=== PATIENT | female | born 1970 | race Caucasian/White ===

== ENCOUNTER 2021-11-17 10:30 | Observation (INO) | payer SELFPAY ==
[2021-11-17] VITALS (15 sets, daily range): BP systolic 105–145; BP diastolic 60–79; PULSE 58–87; RESP 17–21; TEMP 36.2–37.1; O2SAT 96–100; BMI 31.0
--- NOTE | 2021-11-17 | ECHO_ITS ---
Patient Info Name: Jessica Howe Winter Age: 51 years : 1970 Gender: Female Ht: 66 in Wt: 193 lbs BSA: 2.05 m2 HR: 72 bpm BP: 111 / 76 mmHg Technical Quality: Fair Exam Date: 11/17/2021 11:52 AM Exam Location: [facility] Patient Status: Emergency Admit Date: 11/17/2021 Staff Ordering Physician: Bruce Michelle MD Facility Attendant: Kristy Carpenter RDCS Attending Provider: Yousif Fernandez MD Exam Type: CA echo doppler color flow Study Info Indications R07.9 - Chest pain, unspecified - PERICARDIAL EFFUSION Complete two-dimensional, color flow and Doppler transthoracic echocardiogram is performed. Summary 1. Complete two-dimensional, color flow and Doppler transthoracic echocardiogram is performed. 2. Normal LV size and wall thickness, normal LV systolic function, ejection fraction 60-65%. Normal diastolic function. No significant valvular abnormality. Echogenic pericardium. Small pericardial effusion, predominantly along RV wall. No echo evidence of tamponade. Sinus rhythm. Left Ventricle Left ventricular chamber dimension is normal. Left ventricular systolic function is normal, estimated at 60-65%. There is no increased left ventricular wall thickness. The left ventricular diastolic function is normal. Right Ventricle Right ventricular chamber dimension is normal. Right ventricular systolic function is normal. Left Atria Left atrial chamber dimension is normal. Right Atria Right atrial chamber dimension is normal. Aortic Valve The aortic valve is normal. There is no aortic valve stenosis. There is no aortic valve regurgitation. Pulmonic Valve The pulmonic valve is normal. Mitral Valve The mitral valve has normal leaflets. There is no mitral valve stenosis. There is no mitral valve regurgitation. Tricuspid Valve The tricuspid valve leaflets are normal. There is no significant tricuspid valve stenosis. There is no tricuspid valve regurgitation. No pulmonary hypertension, estimated pulmonary arterial systolic pressure is 22 mmHg. Pericardium/Pleural There is small pericardial effusion. Inferior Vena Cava Normal inferior vena cava with >50% collapse upon inspiration consistent with normal right atrial pressure, 10 mmHg. Aorta The aortic root size at the sinus of Valsalva is normal. The prox ascending aorta size is normal. Left Ventricular Outflow Tract Name Value Normal LVOT 2D LVOT Diameter 1.9 cm LVOT Doppler LVOT Peak Gradient 4 mmHg LVOT Mean Gradient 2 mmHg LVOT VTI 21 cm LVOT VTI/AV VTI Ratio 0.8 LVOT Stroke Volume 59 ml LVOT CO 3.7 l/min LVOT CI 1.8 l/min/m2 Pulmonic Valve Name Value Normal RVOT Doppler
--- NOTE | 2021-11-17 11:02 | ECG_ITS ---
Measurements Intervals [place] Rate: 74 P: 62 WV: 162 QRS: 48 QRSD: 82 T: -8 QT: 377 QTc: 420 Interpretive Statements SINUS RHYTHM BORDERLINE ST-T WAVE ABNORMALITY- ANT/INF LEADS BORDERLINE ECG Electronically Signed On 11-17-2021 12:50:24 CDT by Jomar Randle D.O.
--- NOTE | 2021-11-17 11:07 | ED.CHESTPAIN ---
HPI - Chest Pain General Chief Complaint: Chest Pain Stated Complaint: cough/cp Time Seen by Provider: 11/17/21 10:40 Source: patient and RN notes reviewed Mode of arrival: ambulatory Limitations: no limitations History of Present Illness HPI narrative: 51-year-old female with no significant past medical history presenting to the emergency department for evaluation of intermittent left-sided chest pain over the last 3 days. Patient describes cough and left-sided chest pain that has been worsening. Patient states the chest pain occurs with rest. Patient doing on a bike ride on Tuesday and had no chest pain with exertion. Patient states she has not had close follow-up with a primary care physician. Patient has no prior diagnosis of heart disease. Patient does have family history of heart disease. Related Data Home Medications Medication Instructions Recorded Confirmed fexofenadine [Bella Allergy] 180 mg PO DAILY PRN 11/17/21 11/17/21 Allergies Allergy/AdvReac Type Severity Reaction Status Date / Time erythromycin base Allergy Mild Nausea and Verified 11/17/21 11:18 Vomiting Penicillins Allergy Mild Rash Verified 11/17/21 11:18 penicillin G Allergy Unknown Unknown Verified 11/17/21 11:18 Review of Systems Review of Systems: CONSTITUTIONAL: Denies fever, chills, or sweats. EYES: Denies visual changes, redness, or discharge. ENT: Denies rhinorrhea, congestion, sore throat, or otalgia. CARDIOVASCULAR: See HPI RESPIRATORY: See HPI GASTROINTESTINAL: Denies abdominal pain, nausea, vomiting, or diarrhea. GENITOURINARY: Denies dysuria or hematuria. SKIN: Denies rash or itching. MUSCULOSKELETAL: Denies back pain, joint pain, or myalgia. NEUROLOGIC: Denies headache, numbness, or weakness. All systems reviewed & are unremarkable except as noted in HPI and below PMFSH Surgical History Surgical History (Updated 11/17/21 @ 17:55 by Pedrito Mercer MD) History of Family History Family History Mother Acute myocardial infarction Cerebrovascular accident was previously on plavix. Sibling Acute myocardial infarction some weird heart problem. they said maybe she was born with it? Social History Social History (Updated 11/17/21 @ 17:56 by Pedrito Mercer MD) Social History: Patient lives at home with her and 2 daughters. No tobacco use. No drug use. Rare alcohol use. They have 3 dogs. She is a full code. 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 EYES: PERRLA/EOMI, conjunctivae clear. NOSE: Normal no drainage NECK: Supple. No adenopathy, no masses. RESPIRATORY: Airway patent, respirations nonlabored. Clear to auscultation bilaterally, no rales, rhonchi, wheezing. CARDIOVASCULAR: Reproducible left-sided chest wall tenderness to palpation ABDOMINAL: Soft, nontender, nondistended, normal bowel sounds MUSCULOSKELETAL: Moves all extremities. Strength/ROM intact, No edema, No calf tenderness. NEURO: Alert. Cranial nerves II through XII intact. SKIN: Warm, dry. Normal Color Course Course Emergency Course: Cardiology was consulted due to the EKG changes. Patient was evaluated by Dr. Fernandez. With normal troponin and a pericardial effusion seen on a stat echo patient is suspected to have a pericarditis. Patient was treated with 1.2 of colchicine. Patient will be admitted to the hospitalist in the IMU. Vital Signs Vital signs: Vital Signs Temperature 98.8 F 11/17/21 10:43 Pulse Rate 68 11/17/21 10:43 Respiratory Rate 21 H 11/17/21 10:43 Blood Pressure 126/76 11/17/21 10:43 Pulse Oximetry 100 11/17/21 10:43 Temperature 98.6 F 11/17/21
[2021-11-17 11:19] LABS: Basophils Percent Auto 0.6 % (0.2-1.2); Eosinophils Absolute Auto 0.2 K/mm3 (0-0.3); Eosinophils Percent Auto 2.2 % (0-4.4); Hematocrit 38.6 % (37.0-47.0); Hemoglobin 12.3 g/dL (12.0-15.0); Immature Granulocyte Absolute 0.02 K/mm3 (0.00-0.031); Immature Granulocyte Percent A 0.3 % (0-0.5); Lymphocytes Absolute Auto 2.11 K/mm3 (0.9-3.2); Lymphocytes Percent Auto 30.5 % (18.3-44.2); Mean Corpuscular HGB Conc 31.9 g/dl (32-36); Mean Corpuscular Hemoglobin 30.5 pg (26-34); Mean Corpuscular Volume 95.8 fl (80-100); Mean Platelet Volume 10.3 fl (7.4-10.4); Monocytes Absolute Auto 0.4 K/mm3 (0.1-0.6); Monocytes Percent Auto 6.1 % (2.6-8.5); Neutrophils Absolute Auto 4.2 K/mm3 (1.3-6.7); Neutrophils Percent Auto 60.3 % (45.5-73.1); Platelet Count Result 220 k/mm3 (150-375); Red Blood Count 4.03 M/mm3 (4.2-5.4); Red Cell Distribution Width 12.8 % (11.5-14.5); White Blood Count 6.9 K/mm3 (4.5-10.0)
[2021-11-17] MEDS: ASPIRIN 81 MG CHEWABLE TABLET 324 MG PO (11:19)
--- NOTE | 2021-11-17 11:23 | PC.NURSE ---
Dowel Inserting Machine Operator from propagator laborer at bedside at this time following EKG review, discussing POC w/ pt.
[2021-11-17 11:28] LABS: Appearance Urine Clear (Clear); Bilirubin Urine Negative (Negative); Color Urine Yellow (Yellow); Glucose Urine UA Negative (Negative); Ketones Urine Negative (Negative); Leukocyte Esterase Ur Trace LEU/UL (Negative); Nitrate Urine Negative (Negative); Protein Urine Negative (Negative); Specific Grav Ur 1.015 (1.001-1.035); Urobilinogen Urine 0.2 mg/dL (<2.0)
[2021-11-17 11:30] LABS: Squamous Epithelial Cell Urine Moderate /hpf (Few); WBC Urine 0-3 /hpf
--- NOTE | 2021-11-17 11:31 | PC.NURSE ---
Pt declined going to r&d lab technician at this time, discussed with storekeeper steward - pt would like to wait for lab results before deciding POC. Pt on tele monitor. VSS.
[2021-11-17 11:32] LABS: D Dimer 0.41 ug/mL (<0.48)
[2021-11-17 11:33] LABS: Add Urine Microscopic? YES; Blood Urine Trace-Intact (Negative)
[2021-11-17 11:34] LABS: Alanine Aminotransferase 26 U/L (4-35); Albumin Level 4.5 g/dL (3.5-5.1); Alkaline Phosphatase 95 U/L (38-126); Anion Gap 7 mmol/L (8-16); Aspartate Amino Transferase 26 U/L (14-36); Bilirubin,Total 0.2 mg/dL (0.2-1.3); Blood Urea Nitrogen 10 mg/dL (7-17); Calcium 9.1 mg/dL (8.4-10.2); Carbon Dioxide 26 mmol/L (22-30); Chloride 107 mmol/L (98-107); Estimated CRCL calculation 69 ml/min; Estimated Glomerular Filt Rate > 60; Glucose 105 mg/dL (65-110); Potassium 3.8 mmol/L (3.4-5.0); Sodium 140 mmol/L (137-145)
[2021-11-17 11:44] LABS: NT Pro B Type Natriuretic Pept 29 pg/mL (5-100); Troponin I < 0.012 ng/mL (0.000-0.034)
--- NOTE | 2021-11-17 11:44 | PM.CNCAR ---
Assessment and Plan Assessment and plan (1) Pericarditis: Qualifiers: Chronicity: acute Pericarditis type: unspecified type Qualified Code(s): I30.9 - Acute pericarditis, unspecified Code(s): I31.9 - Disease of pericardium, unspecified Status: Acute Assessment and Plan: 51-year-old female with no known prior cardiac history, presented to emergency room with 3 day history of intermittent chest pain with pleuritic features. EKG showed sinus rhythm with ST-T abnormality. First set of troponins negative. D-dimer is negative. Stat echocardiogram performed in the ER which I personally evaluated showed preserved LV systolic function, at least small pericardial effusion without tamponade. Clinical presentation suggestive of pericarditis. -initiate on colchicine along with NSAID and PPI. -full report of echocardiogram to follow. -need for any further testing to be determined based on clinical course. -admit to telemetry bed. Monitor vitals closely and watch for any arrhythmias. History of Present Illness History of Present Illness Consult date/time: 11/17/21 11:44 DATE OF CONSULT: 11/17/2021 REASON FOR CONSULT: Chest pain, EKG abnormalities REQUESTING PHYSICIAN:Bruce Michelle MD CHIEF COMPLAINT: Chest pain HPI: 51-year-old female with no known prior cardiac history. Patient was in her usual state of health until 3 days ago when she started having chest pain in the substernal area with radiation to the left subcostal area. She describes her chest pain as sharp sensation, worse with deep inspiration. Sometimes, the chest pain will be pressure-like sensation in the chest. Symptoms of chest pain were intermittent for last couple of days. She denied any associated symptoms of shortness of breath, palpitation, dizziness or syncope. She denied any fever, chills, myalgias. Patient has nasal congestion which she attributes to seasonal allergies. She denies any prior history of clinical OR, angina, heart failure or any known arrhythmias. She denies any history of pericarditis or myocarditis. Patient denies any family history of early coronary disease. However, she states that her mother had what she described had coronary vasospasm when she was in 60s. At the time of evaluation in the emergency room, patient was anxious. She had discomfort in the left axillary area, worse with breathing. Her vitals were stable and her oxygen saturations were within normal limits. Her EKG on my personal evaluation showed sinus rhythm, ST-T abnormality in the inferolateral leads. Prior to arrival up labs, possibility of additional cardiac workup including an invasive workup was discussed with the patient, however, she was reluctant for any invasive workup. Few minutes later, labs came back. First set of troponin, BNP were unremarkable. D-dimer was unremarkable. I requested a stat echo to the emergency room which on my personal evaluation showed preserved LV systolic function without segmental wall motion abnormality. Small pericardial effusion was seen with some echodensity. No clinical or echo evidence of tamponade. Reason For Visit: cough/cp Review of Systems Review of Systems: General: Negative for fever, chills, fatigue Psychological: Positive for anxiety ENT: Negative for epistaxis, headaches Allergy and immunology: Negative for hives, nasal congestion Hematologic and lymphatic: Negative for overt bleeding problems Endocrine: Negative for hot flashes, palpitations Respiratory: Negative for cough, hemoptysis Cardiovascular: Positive for chest pain with pleuritic features, worse with deep inspiration Gastrointestinal: Negative for abdominal pain, nausea, vomiting, hematochezia Musculoskeletal: Negative for myalgia, joint pains Neurological: Negative for weakness Dermatological: Negative for rash, skin discoloration PMFSH Family History Family History (Updated 11/17/21 @ 12:00 by Yousif Fernandez MD) Other Acu
[2021-11-17] MEDS: LORazepam INJ (*CRX) 2 MG/ML VIAL 1 MG IV PUSH (12:44)
--- NOTE | 2021-11-17 13:27 | ADMGEN ---
This patient, Jessica Howard, was admitted to IMU Room 210-01. Patient/family oriented to hospital policies and general routines including ID bracelet, bed and alarms, visiting hours, pain management, procedures, bathroom and other care routines, personal items, smoking policy, room service/diet, and visiting hours. Information on how to activate the Rapid Response Team has been discussed. Patient/Family are encouraged to report perceived risks to care and to ask questions if they do not understand what they are told or what they should do.
[2021-11-17] MEDS: IBUPROFEN 400 MG TABLET PO ×2 (14:05→17:08)
[2021-11-17] MEDS: COLCHICINE 0.6 MG TABLET 1.2 MG PO (14:05)
[2021-11-17 14:26] LABS: Troponin I < 0.012 ng/mL (0.000-0.034)
--- NOTE | 2021-11-17 17:28 | PM.IMHP ---
H&P: HPI History of Present Illness Date/Time: 11/17/21 17:28 Chief Complaint: Chest pain Narrative: 51yo healthy female here for chest pain. Patient has had intermittent 'tight pressure' left-sided chest pain over the past 3 days. It is worse with coughing. It occurs at rest and would come and go. No change when she is active. No history of heart disease. No nausea vomiting. No radiation to the pain. Pain is pleuritic worse coughing and deep breathing. She tried heating pad without benefit. Also states that was tender to touch on the left side of the chest. No fever, chills or diaphoresis. No recent infectious symptoms. No recent antibiotics. No sick contacts. Patient states that she is in menopause and doubts that she is . Because of the persistent symptoms, she presented to the emergency room for evaluation. In the emergency room, she was hemodynamically stable. EKG showed borderline ST T wave changes in anterior and inferior leads. D-dimer was normal. Troponin was negative x2. Echocardiogram was performed which was normal with exception of she had echogenic pericardium as small pericardial effusion consistent with pericarditis. She was given aspirin, colchicine, Ativan and Motrin. She was admitted for further care Review of Systems Review of Systems: All systems reviewed & are unremarkable except as noted in HPI and below PMFSH Surgical History Surgical History (Updated 11/17/21 @ 17:55 by Pedrito Mercer MD) History of Family History Family History Mother Acute myocardial infarction Cerebrovascular accident was previously on plavix. Sibling Acute myocardial infarction some weird heart problem. they said maybe she was born with it? Social History Social History (Updated 11/17/21 @ 17:56 by Pedrito Mercer MD) Social History: Patient lives at home with her and 2 daughters. No tobacco use. No drug use. Rare alcohol use. They have 3 dogs. She is a full code. 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 Spiritual care concerns: No Meds Home Medications and Allergies Home Medications Medication Instructions Recorded Confirmed Type fexofenadine [Bella Allergy] 180 mg PO DAILY PRN 11/17/21 11/17/21 History Allergies Allergy/AdvReac Type Severity Reaction Status Date / Time erythromycin base Allergy Mild Nausea and Verified 11/17/21 11:18 Vomiting Penicillins Allergy Mild Rash Verified 11/17/21 11:18 penicillin G Allergy Unknown Unknown Verified 11/17/21 11:18 Vital Signs Vital Signs - 24 hr 11/17/21 10:43 11/17/21 11:14 11/17/21 11:21 Temperature 98.8 F Pulse Rate 68 68 87 Respiratory Rate 21 H 17 Blood Pressure 126/76 129/79 Pulse Oximetry 100 100 11/17/21 11:22 11/17/21 11:32 11/17/21 12:44 Temperature Pulse Rate 80 67 Respiratory Rate 17 21 H Blood Pressure 145/63 H 124/65 Pulse Oximetry 100 98 96 11/17/21 13:29 11/17/21 14:29 11/17/21 16:00 Temperature 97.2 F L Pulse Rate 69 78 66 Respiratory Rate 20 Blood Pressure 106/60 Pulse Oximetry 99 11/17/21 16:41 Temperature 98.6 F Pulse Rate 66 Respiratory Rate 21 H Blood Pressure 114/69 Pulse Oximetry 99 Exam Narrative: AF 98.6 114/69 66 21 99% ra Gen - well-nourished, well-developed female in no acute respiratory distress who is nontoxic-appearing lying semi recumbent in bed HEENT - normocephalic. Atraumatic. Pupils equal round and reactive. Extraocular motions intact. Sclera clear and anicteric. Nares patent. Oropharynx was clear. No oral lesions. Moist mucous membranes. Tongue was midline. Palate sana symmetrically. No facial asymmetry. Neck - neck was supple. No dominant adenopathy, thyromegaly or mass
[2021-11-17 17:30] LABS: Troponin I < 0.012 ng/mL (0.000-0.034)
[2021-11-17 19:31] LABS: SPREG INTERNAL CONTROL Positive; Serum Qual hCG Negative
[2021-11-17] MEDS: COLCHICINE 0.6 MG TABLET PO (20:43)
[2021-11-18] VITALS (7 sets, daily range): BP systolic 96–114; BP diastolic 42–64; PULSE 56–69; RESP 18–20; TEMP 35.8–36.5; O2SAT 98
--- NOTE | 2021-11-18 08:49 | PM.PNCARD ---
Progress Note: A&P Additional Plan 51-year-old lady with: Idiopathic acute pericarditis which is had a nice response to ibuprofen and colchicine. She does have nonspecific ST and T changes on her knee admitting/presenting EKG rather than the typical diffuse ST-elevation of pericarditis. In any event she has had a nice clinical response to treatment and I believe can be discharged for outpatient follow-up. I will see that she receives an appointment with Dr. Fernandez in the office. In the meantime she should stay on ibuprofen and colchicine. Keyshawn León MD [facility] Subjective Date/time seen: Date of service: 11/18/21 08:49 Interval history: Follow-up visit in this 51-year-old lady with: Chest pain admitted yesterday with a clinical and echocardiographic diagnosis of pericarditis. She was started on ibuprofen and colchicine and is feeling much better this morning. Hemodynamically stable. No arrhythmias noted Exam Const: General: comfortable and no acute distress HENMT: Mouth: Yes moist mucous membranes Eyes: Sclera: sclerae normal Neck: Neck: supple and no JVD Resp: Effort & Inspection: normal respiratory effort Auscultation: clear to auscultation bilaterally Other: No rales no rhonchi no wheezing Cardio: Rate: regular rate Rhythm: regular rhythm Other: PMI nondisplaced, on careful auscultation no pericardial rub can be heard GI: GI Palp: Yes Soft to palpation Auscultation: normal bowel sounds Objective Data Vital Signs Vital Signs: Vital Signs - 24 hr 11/17/21 10:43 11/17/21 11:14 11/17/21 11:21 Temperature 37.1 C Pulse Rate 68 68 87 Respiratory Rate 21 H 17 Blood Pressure 126/76 129/79 Pulse Oximetry 100 100 11/17/21 11:22 11/17/21 11:32 11/17/21 12:44 Temperature Pulse Rate 80 67 Respiratory Rate 17 21 H Blood Pressure 145/63 H 124/65 Pulse Oximetry 100 98 96 11/17/21 13:29 11/17/21 14:29 11/17/21 16:00 Temperature 36.2 C L Pulse Rate 69 78 66 Respiratory Rate 20 Blood Pressure 106/60 Pulse Oximetry 99 11/17/21 16:41 11/17/21 18:00 11/17/21 19:58 Temperature 37.0 C 36.4 C Pulse Rate 66 72 66 Respiratory Rate 21 H 18 Blood Pressure 114/69 118/61 Pulse Oximetry 99 97 11/17/21 20:00 11/17/21 22:20 11/17/21 23:25 Temperature 36.6 C Pulse Rate 73 67 58 L Respiratory Rate 20 Blood Pressure 105/65 Pulse Oximetry 97 11/18/21 00:00 11/18/21 02:38 11/18/21 04:00 Temperature 36.5 C Pulse Rate 64 62 60 Respiratory Rate 20 Blood Pressure 114/64 Pulse Oximetry 98 11/18/21 06:00 11/18/21 08:00 Temperature 35.8 C L Pulse Rate 60 66 Respiratory Rate 18 Blood Pressure 103/48 L Pulse Oximetry 98 Intake/Output Intake/Output: Intake & Output 11/15/21 11/16/21 11/17/21 11/18/21 23:59 23:59 23:59 23:59 Intake Total 640 800 Output Total 350 400 Balance 290 400 Meds/Results Medications: Active Medications Generic Name Dose Route Start Last Admin Trade Name Freq PRN Reason Stop Dose Admin Colchicine 0.6 mg 11/17/21 21:00 11/17/21 20:43 Colchicine 0.6 Mg Tablet PO 0.6 mg Q12HR EREN Administration Ibuprofen 400 mg 11/17/21 13:00 11/17/21 17:08 Ibuprofen 400 Mg Tablet PO 400 mg TID EREN Administration Pantoprazole Sodium 20 mg 11/18/21 09:00 Pantoprazole Sod Sesquihydrate 20 Mg Tab PO QAM EREN Perflutren Lipid Microsphere 0 ml 11/17/21 11:34 Perflutren Lipid Microspheres 1.5 Ml Vial Diluted To 10 Ml Total Volume IV PUSH ONCE PRN adequate visualization Protocol Labs Labs: Laboratory Results - last 24 hr 11/17/21 11/17/21 11/17/21 11:12 11:12 11:12 WBC 6.9 RBC 4.03 L Hgb 12.3 Hct 38.6 MCV 95.8 MCH 30.5 MCHC 31.9 L RDW 12.8 Plt Count 220 MPV 10.3 Immature Gran % (Auto) 0.3 Neut % (Auto) 60.3 Lymph % (Auto) 30.5 [place] % (Auto) 6.1 Eos % (Auto) 2.2 Baso % (Auto) 0.6 Lymph # (Auto) 2.11 M
[2021-11-18] MEDS: PANTOPRAZOLE SOD SESQUIHYDRATE 20 MG TAB PO (09:49)
[2021-11-18] MEDS: IBUPROFEN 400 MG TABLET PO (09:49)
[2021-11-18] MEDS: COLCHICINE 0.6 MG TABLET PO (09:49)
--- NOTE | 2021-11-18 11:00 | PM.DS ---
DS: Admitting Diagnosis Discharge Date 11/18/21 Admitting Diagnosis Chest pain DS: Discharge Diagnosis Discharge Diagnosis (1) Pericarditis: Qualifiers: Chronicity: acute Pericarditis type: unspecified type Qualified Code(s): I30.9 - Acute pericarditis, unspecified Code(s): I31.9 - Disease of pericardium, unspecified Status: Acute (2) Chest pain: Qualifiers: Chest pain type: unspecified Qualified Code(s): R07.9 - Chest pain, unspecified Code(s): R07.9 - Chest pain, unspecified Status: Acute (3) Acute pericardial effusion: Code(s): I30.9 - Acute pericarditis, unspecified Status: Acute DS: Summary Hospital Course Reason for hospitalization: 51yo healthy female here for chest pain. Please see H&P for details Hospital Course: Patient presents to the ED with complaints of chest pain. In the ED, she was hemodynamically stable. EKG showed borderline ST T wave changes in anterior and inferior leads. D-dimer was normal. Troponin was negative x3. test was negative. Echo was performed which was normal with exception that she had echogenic pericardium as small pericardial effusion consistent with pericarditis. She was given aspirin, colchicine, Ativan and Ibuprofen. She was admitted to the IMU for further monitoring. She was continued on Ibuprofen and colchicine. She feels well. Chest pain has all but resolved. Cardiology was involved in her care and felt the patient could be discharged home. Status at Discharge Cognitive/behavioral status at discharge: Stable Time Spent with Patient Time attestation: Total time spent providing and/or coordinating discharge services: 32 minutes Time spent: Greater than 30 minutes Exam Narrative: AF 96.5 103/48 60 18 98% ra Gen - NARD Chest - CTA bilaterally CV - RRR. S1-S2. No rubs. Tele showing 5 beat run of NSVT but otherwise no significant dysrhythmias (cardiology aware) Abd - soft, NT/ND, +BS Ext - no pedal edema Neuro - patient is alert and appropriate Psych - she is tearful at times Skin - warm and dry. DS: Data Data Completed and Pending Labs on day of discharge: Labs from last 24 hours 11/17/21 11/17/21 11/17/21 18:28 16:52 13:58 WBC RBC Hgb Hct MCV MCH MCHC RDW Plt Count MPV Immature Gran % (Auto) Neut % (Auto) Lymph % (Auto) [place] % (Auto) Eos % (Auto) Baso % (Auto) Lymph # (Auto) [place] # (Auto) Eos # (Auto) Baso # (Auto) Abs Immat Gran (auto) Absolute Neuts (auto) Absolute Nucleated RBC Nucleated RBC % D-Dimer Sodium Potassium Chloride Carbon Dioxide Anion Gap BUN Creatinine Estim Creat Clear Calc Estimated GFR Glucose Calcium Total Bilirubin AST ALT Alkaline Phosphatase Troponin I < 0.012 < 0.012 NT-Pro-B Natriuret Pep Total Protein Albumin Serum HCG, Qual Negative Urine Color Urine Appearance Urine pH Ur Specific [place] Urine Protein Urine Glucose (UA) Urine Ketones Ur Blood (Man) Urine Nitrate Urine Bilirubin Urine Urobilinogen Leukocyte Esterase Rfl Urine RBC Urine WBC Ur Squamous Epith Cells 11/17/21 11/17/21 11/17/21 11:14 11:12 11:12 WBC RBC Hgb Hct MCV MCH MCHC RDW Plt Count MPV Immature Gran % (Auto) Neut % (Auto) Lymph % (Auto) [place] % (Auto) Eos % (Auto) Baso % (Auto) Lymph # (Auto) [place] # (Auto) Eos # (Auto) Baso # (Auto) Abs Immat Gran (auto) Absolute Neuts (auto) Absolute Nucleated RBC Nucleated RBC % D-Dimer 0.41 Sodium 140 Potassium 3.8 Chloride 107 Carbon Dioxide 26 Anion Gap 7 L BUN 10 Creatinine 0.80 Estim Creat Clear Calc 69 Estimated GFR > 60 Glucose 105 Calcium 9.1 Total Bilirubin 0.2 AST 26 ALT 2
== END 2021-11-18 12:51 | disposition home or self-care (01) ==
LOC: ANHED 12:33 → ANHIMU 13:05
PROVIDERS: Emergency Medicine; Admitting Provider Internal Medicine; Emergency Provider Internal Medicine Cardiovascular Disease; PCP Physician Assistant; Visit Provider Internal Medicine
DX: I30.9 Acute pericarditis, unspecified (principal); Z88.0 Allergy status to penicillin
CPT/HCPCS: 36415; 80053; 81001; 83880; 84484; 84703; 85025; 85380; 93005; 93306; 96374; 99285; A9270; G0378; G0379; J1644; J2060; J7040

== ENCOUNTER 2022-08-16 10:09 | Outpatient (CLI) | payer OTHER, SELFPAY ==
--- NOTE | ~2022-08-16 | MM_ITS ---
EXAMINATION: MM screening [facility] BI w junior HISTORY: Screening TECHNIQUE: Craniocaudal and mediolateral oblique 3-D tomosynthesis images were obtained and synthetic 2-D images were generated. CAD analysis was submitted and interpreted. COMPARISON: 06/16/2016 BREAST PARENCHYMAL COMPOSITION: There are scattered areas of fibroglandular density. FINDINGS: There are new masses in the lower inner quadrant of both breasts as well as the upper outer quadrant of the right breast. There are no suspicious calcifications or architectural distortion. IMPRESSION: 1. New bilateral breast masses. 2. Additional mammographic views and possible breast ultrasound are recommended. BI-RADS Category 0: Incomplete: Needs additional imaging evaluation. Reviewed, dictated and finalized at location A. [employer] OPERATOR IMPRESSION: 1. New bilateral breast masses. 2. Additional mammographic views and possible breast ultrasound are recommended . BI-RADS Category 0: Incomplete: Needs additional imaging evaluation.
== END 2022-08-16 10:10 | disposition home or self-care (01) ==
LOC: ANHIMG 10:12
PROVIDERS: PCP Physician Assistant; Visit Provider Nurse Practitioner Obstetrics & Gynecology
DX: Z12.31 Encounter for screening mammogram for malignant neoplasm of breast (principal); N63.0 Unspecified lump in unspecified breast
CPT/HCPCS: 77063; 77067

== ENCOUNTER 2022-09-08 13:39 | Outpatient (CLI) | payer OTHER, SELFPAY ==
--- NOTE | ~2022-09-08 | MMUS_ITS ---
EXAMINATION: MM diagnostic [place] BI w junior, US breast BI complete HISTORY: New bilateral breast masses reported on 08/16/2022 screening mammogram examination TECHNIQUE: Additional 3-D tomosynthesis images of both breasts were performed and synthetic 2-D image s were generated. CAD analysis was submitted and interpreted. High resolution complete bilateral mae st ultrasound examination including all 4 quadrants and subareolar area of each breast was performed. COMPARISON: 08/16/2022 bilateral screening mammogram 06/07/2017 Limited right breast ultrasound 06/30/2016 bilateral diagnostic mammogram and bilateral complete breast ultrasound examination 06/16/2016 bilateral screening mammogram FINDINGS: MAMMOGRAPHIC FINDINGS: Occasional scattered described small nodular opacities are noted. No suspicious mass, architectural d istortion, malignant calcification, skin thickening or retraction of either breast is evident. ULTRASOUND: No suspicious mass or shadowing of either breast is evident. Right breast: At 12:00 4.5 cm from the nipple there are multiple circular and oval circumscribed hypoechoic lesions without internal vascularity or posterior shadowing, the largest measuring 4 x 7.6 mm mm, benign in appearance. 3:00 1 cm from nipple: Approximately 4.2 x 4.4 mm multi septated cyst Left breast: 4 x 4.6 mm circumscribed hypoechoic lesion without internal vascularity or posterior shadowing, benig n in appearance 9:00 3 cm from nipple: 4.3 x 5.7 mm septated cyst IMPRESSION: 1. Benign findings 2. Routine annual mammographic screening is recommended BI-RADS Category 2: Benign finding(s). Reviewed, dictated and finalized at location A. IC HEALTH PROFESSOR IMPRESSION: 1. Benign findings 2. Routine annual mammographic screening is recommended BI-RADS Category 2: Benign finding(s).
== END 2022-09-08 13:40 | disposition home or self-care (01) ==
LOC: ANHIMG 13:43
PROVIDERS: PCP Physician Assistant; Visit Provider Nurse Practitioner Obstetrics & Gynecology
DX: R92.8 Other abnormal and inconclusive findings on diagnostic imaging of breast (principal)
CPT/HCPCS: 76641; 77062; 77066; G0279

== ENCOUNTER 2023-09-08 00:15 | Day surgery (SDC) | payer OTHER, SELFPAY ==
[2023-08-19 13:33] VITALS: BMI 31.1
--- NOTE | 2023-09-06 09:11 | SUR.PREOP ---
Patient called regarding upcoming procedure. Voicemail left regarding appointment times.
--- NOTE | 2023-09-07 17:40 | PM.HPGS ---
History of Present Illness History of Present Illness Consent: Risks, benefits, and alternatives have been discussed and questions answered. Patient agrees to proceed with procedure. Chief complaint: neoplasm screening Narrative: Jessica Howard is a 53 year old female Referred for colon cancer screening. Review of Systems Review of Systems: All systems reviewed & are unremarkable except as noted in HPI and below [facility] Surgical History Surgical History History of Family History Family History Mother Acute myocardial infarction Cerebrovascular accident was previously on plavix. Sibling Acute myocardial infarction some weird heart problem. they said maybe she was born with it? Social History Social History Social History: Patient lives at home with her and 2 daughters. No tobacco use. No drug use. Rare alcohol use. They have 3 dogs. She is a full code. 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 Spiritual care concerns: No Meds Home Medications and Allergies Home Medications Medication Instructions Recorded Confirmed Type fexofenadine 180 mg tablet 180 mg PO DAILY PRN Allergy 11/17/21 08/19/23 History (Bella Allergy) Symptoms estradiol 0.5 mg tablet 0.5 mg PO DAILY 08/19/23 08/19/23 History Allergies Allergy/AdvReac Type Severity Reaction Status Date / Time Penicillins Allergy Mild Rash Verified 09/08/23 07:23 penicillin G Allergy Unknown Unknown Verified 09/08/23 07:23 erythromycin base AdvReac Mild Nausea and Verified 09/08/23 07:23 Vomiting Exam Const: General: alert Orientation/consciousness: patient oriented x3 Resp: Auscultation: clear to auscultation bilaterally Cardio: Rhythm: regular rhythm GI: GI Palp: Yes Soft to palpation and No Tenderness to palpation present (GI) Neuro: General: patient oriented x3 Assessment and Plan Assessment and plan (1) Colon cancer screening: Code(s): Z12.11 - Encounter for screening for malignant neoplasm of colon Status: Acute Assessment and Plan: Colonoscopy with possible biopsy or polypectomy or cautery or injection of substances.
[2023-09-08 07:24] VITALS: BP 114/61; PULSE 85; RESP 18; TEMP 36.4; O2SAT 97
[2023-09-08] MEDS: LACTATED RINGERS 1,000 ML 150 ML IV CONT (07:32)
--- NOTE | 2023-09-08 07:49 | P.PNAN_ITS ---
Anes - Initial Pre Proc Eval Procedure: Operation Date: 09/08/23 08:30 Proposed Procedures p Screening Colonoscopy - Luis Enrique Pitts MD Date/Time: 09/08/23 07:49 Surgeon: Luis Enrique Pitts MD Pre Op Diagnosis: neoplasm screening Patient Data Age: 53 Gender: F Height: 1.68 m Weight: 87.7 kg Last Vital Signs Temp 97.5 F L 09/08/23 07:24 Pulse 85 09/08/23 07:24 Resp 18 09/08/23 07:24 BP 114/61 09/08/23 07:24 Pulse Ox 97 09/08/23 07:24 O2 Del Method Room Air 09/08/23 07:24 Allergies Allergy/AdvReac Type Severity Reaction Status Date / Time Penicillins Allergy Mild Rash Verified 09/08/23 07:23 penicillin G Allergy Unknown Unknown Verified 09/08/23 07:23 erythromycin base AdvReac Mild Nausea and Verified 09/08/23 07:23 Vomiting Home Medications Medication Instructions Recorded Confirmed Type fexofenadine 180 mg tablet 180 mg PO DAILY PRN Allergy 11/17/21 08/19/23 History (Bella Allergy) Symptoms estradiol 0.5 mg tablet 0.5 mg PO DAILY 08/19/23 08/19/23 History Patient hx anesthesia problems: none Family hx anesthesia problems: none Results Review: All pre-operative results and documents have been reviewed as part of the pre- operative evaluation. [facility] Surgical History Surgical History History of Family History Family History Mother Acute myocardial infarction Cerebrovascular accident was previously on plavix. Sibling Acute myocardial infarction some weird heart problem. they said maybe she was born with it? Social History Social History Social History: Patient lives at home with her and 2 daughters. No tobacco use. No drug use. Rare alcohol use. They have 3 dogs. She is a full code. 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 Informed Consent: The patient's anesthetic plan and its attendant risks and benefits were discussed with the patient/family/POA. Questions were solicited and answers provided to the satisfaction of the patient/family/POA.
[2023-09-08 08:36] VITALS: BP 115/57; PULSE 63; RESP 23; O2SAT 95
[2023-09-08 08:46] VITALS: BP 112/67; PULSE 66; RESP 17; O2SAT 97
[2023-09-08 08:56] VITALS: BP 121/60; PULSE 65; RESP 18; O2SAT 98
== END 2023-09-08 09:05 | disposition home or self-care (01) ==
PROVIDERS: PCP Physician Assistant; Visit Provider Internal Medicine Gastroenterology
PROC: 0DJD8ZZ Inspection of Lower Intestinal Tract, Via Natural or Artificial Opening Endoscopic (ICD-10-PCS; CPT 45378; principal; 2023-09-08 08:30)
DX: Z12.11 Encounter for screening for malignant neoplasm of colon (principal); K62.1 Rectal polyp; E66.9 Obesity, unspecified; Z68.31 Body mass index [BMI] 31.0-31.9, adult
CPT/HCPCS: 45380; 88305; J7120

== ENCOUNTER 2023-10-19 07:55 | Outpatient (CLI) | payer OTHER, SELFPAY ==
--- NOTE | ~2023-10-19 | US_ITS ---
Abdominal Sonogram: Real-time sonographic imaging of the abdomen was performed. Clinical History: Pain Findings: The liver appears mildly echogenic, with no evidence of mass lesion or bile duct dilatatio n. Main portal vein demonstrates normal direction of flow. The spleen is normal in size without evide nce of focal lesion. The gallbladder is well distended, and appears normal with no evidence of galls tone or wall thickening. The common bile duct measures 4 mm. The visualized pancreas, aorta, and IVC are unremarkable. The right kidney measures 10.0 cm in length and the left kidney measures 10.2 cm. There is no hydronephrosis or renal calculus. Impression: Probable fatty infiltration of the liver. Reviewed, dictated and finalized at location . Impression: Probable fatty infiltration of the liver.
--- NOTE | ~2023-10-19 | US_ITS ---
EXAMINATION: US pelvic complete w TV DATE: 10/19/2023 10:49 INDICATION: Pelvic and perineal pain. TECHNIQUE: Multiple transabdominal and transvaginal sonographic images of the pelvis were obtained. COMPARISON: None. FINDINGS: TRANSABDOMINAL ULTRASOUND: The uterus measures 8.4 x 4.6 x 4.6 cm. The right ovary measures 3.0 x 0.8 x 1.5 cm. The left ovary m easures 3.3 x 0.9 x 1.3 cm. There is no free fluid in the pelvis. TRANSVAGINAL ULTRASOUND: The endometrial complex measures 7 mm in thickness. IMPRESSION: 1. Normal pelvis. Reviewed, dictated and finalized at location A. IMPRESSION: 1. Normal pelvis.
== END 2023-10-19 07:56 | disposition home or self-care (01) ==
PROVIDERS: PCP Nurse Practitioner Family; Visit Provider Nurse Practitioner Family
DX: R10.2 Pelvic and perineal pain (principal); R79.89 Other specified abnormal findings of blood chemistry
CPT/HCPCS: 76700; 76830; 76856

== ENCOUNTER 2023-10-31 13:35 | Outpatient (CLI) | payer OTHER, SELFPAY ==
--- NOTE | ~2023-10-31 | CT_ITS ---
EXAMINATION: CT abdomen pelvis w con DATE: 10/31/2023 13:59 INDICATION: Abdominal pain. Pelvic pain. TECHNIQUE: Computed tomography (CT) of the abdomen and pelvis was performed with 100 mL Omnipaque 350 intravenous contrast. Automated exposure control and iterative reconstruction technique were employe d. The dose-length product was 914.38 mGy-cm. COMPARISON: Pelvis ultrasound 10/19/2023 FINDINGS: The visual portions of the lung bases demonstrate mild atelectasis. No pleural effusion. Th e heart size is normal. No pericardial effusion. The liver, gallbladder, spleen, pancreas, adrenal gl ands, and left kidney are normal. There are cysts in right kidney measuring up to 10 mm. There are no dilated loops of bowel. The appendix is normal. There are no pathologically enlarged lymph nodes. Th ere is no free intraperitoneal fluid. The left periuterine veins and left ovarian vein are enlarged, consistent with pelvic venous insufficiency. There is mild thoracic and lumbar spondylosis. IMPRESSION: 1. Pelvic venous insufficiency. Reviewed, dictated and finalized at location E.
== END 2023-10-31 13:36 | disposition home or self-care (01) ==
LOC: ANHIMG 13:35
PROVIDERS: PCP Nurse Practitioner Family; Visit Provider Nurse Practitioner Family
DX: R10.2 Pelvic and perineal pain (principal); R10.84 Generalized abdominal pain
CPT/HCPCS: 74177; Q9967

== ENCOUNTER 2024-03-14 00:20 | Emergency (ER) | payer OTHER, SELFPAY ==
[2024-03-14] VITALS (19 sets, daily range): BP systolic 96–128; BP diastolic 47–76; PULSE 57–70; RESP 12–19; TEMP 36.5–36.8; O2SAT 95–100
--- NOTE | 2024-03-14 02:20 | ECG_ITS ---
Test Date: 2024-03-14 04:40:02 Measurements Intervals [place] Rate: 63 P: 56 [place]: 192 QRS: 52 QRSD: 82 T: 8 QT: 415 QTc: 425 Interpretive Statements SINUS RHYTHM NONSPECIFIC ST SEGMENT ABNORMALITY ABNORMAL ECG No previous ECG available for comparison Electronically Signed On 03-15-2024 13:02:18 CDT by Kyeshawn León M.D.
--- NOTE | 2024-03-14 03:15 | PC.NURSE ---
pt refused ekg, labs, swabs until she is seen by a provider
[2024-03-14 04:59] LABS: Basophils Absolute Auto 0.1 K/mm3 (0.0-0.1); Basophils Percent Auto 0.7 % (0.2-1.2); Eosinophils Absolute Auto 0.1 K/mm3 (0-0.3); Eosinophils Percent Auto 1.8 % (0-4.4); Hematocrit 42.7 % (37.0-47.0); Hemoglobin 13.9 g/dL (12.0-15.0); Immature Granulocyte Absolute 0.02 K/mm3 (0.00-0.031); Immature Granulocyte Percent A 0.3 % (0-0.5); Lymphocytes Absolute Auto 2.24 K/mm3 (0.9-3.2); Mean Corpuscular HGB Conc 32.6 g/dl (32-36); Mean Corpuscular Hemoglobin 30.3 pg (26-34); Mean Corpuscular Volume 93.2 fl (80-100); Mean Platelet Volume 10.7 fl (7.4-10.4); Monocytes Absolute Auto 0.5 K/mm3 (0.1-0.6); Monocytes Percent Auto 6.2 % (2.6-8.5); Neutrophils Absolute Auto 4.3 K/mm3 (1.3-6.7); Platelet Count Result 241 k/mm3 (150-375); Red Blood Count 4.58 M/mm3 (4.2-5.4); Red Cell Distribution Width 12.6 % (11.5-14.5); White Blood Count 7.2 K/mm3 (4.5-10.0)
[2024-03-14 05:04] LABS: Alanine Aminotransferase 21 U/L (6-35); Albumin Level 4.7 g/dL (3.5-5.1); Alkaline Phosphatase 73 U/L (38-126); Anion Gap 12 mmol/L (4-12); Aspartate Amino Transferase 23 U/L (14-36); Bilirubin,Total 0.6 mg/dL (0.2-1.3); Blood Urea Nitrogen 16 mg/dL (7-17); Calcium 9.5 mg/dL (8.4-10.2); Carbon Dioxide 29 mmol/L (22-30); Chloride 99 mmol/L (98-107); Estimated CRCL calculation 69 ml/min; Estimated Glomerular Filt Rate > 60; Glucose 97 mg/dL (65-110); Potassium 3.6 mmol/L (3.4-5.0); Sodium 140 mmol/L (137-145)
[2024-03-14 05:08] LABS: INR 0.9
[2024-03-14 05:09] LABS: Partial Thromboplastin Time 31.6 Seconds (22.3-36.8)
[2024-03-14 05:14] LABS: Troponin I < 0.012 ng/mL (0.000-0.034)
[2024-03-14 05:16] LABS: Strep Group A RT-PCR NOT DETECTED (Negative)
[2024-03-14 05:28] LABS: Influenza A QL RT-PCR Negative (Negative); Influenza B QL RT-PCR Negative (Negative); SARS-CoV-2 RNA PCR Negative (Negative)
--- NOTE | 2024-03-14 05:41 | ED.EAR ---
HPI - Ear Problem General Chief complaint: Ear Stated complaint: ear, throat, jaw pain Time Seen by Provider: 03/14/24 02:07 History of Present Illness HPI Narrative: Patient is a 53-year-old female who presents to the emergency department this evening complaining of right ear pain and right jaw pain. Patient states that the symptoms started yesterday and she decided to come to the emergency today for further evaluation as they have not subsided. Denies any cardiac history and currently denying any chest pain. Patient denies any fevers or chills at home. She denies any upper respiratory infection symptoms and denies any cough. No additional symptoms or concerns at this time. Related Data Home Medications Medication Instructions Recorded Confirmed fexofenadine 180 mg tablet 180 mg PO DAILY PRN Allergy 11/17/21 10/04/23 (Bella Allergy) Symptoms estradiol 0.5 mg tablet 0.5 mg PO DAILY 08/19/23 10/04/23 progesterone micronized 100 mg 100 mg PO QAM 10/04/23 10/04/23 capsule (Prometrium) Allergies Allergy/AdvReac Type Severity Reaction Status Date / Time Penicillins Allergy Mild Rash Verified 10/04/23 09:58 penicillin G Allergy Unknown Unknown Verified 10/04/23 09:58 erythromycin base AdvReac Mild Nausea and Verified 10/04/23 09:58 Vomiting Review of Systems Review of Systems: All systems are reviewed and are negative unless stated otherwise in the HPI. [facility] Past Medical History Medical History Abdominal pain Cold sore Elevated TSH Pelvic pain Surgical History Surgical History H/O LEEP History of Family History Family History Mother Acute myocardial infarction Cerebrovascular accident was previously on plavix. Sibling Acute myocardial infarction some weird heart problem. they said maybe she was born with it? Father Asthma Grandparent Diabetes mellitus Social History Social History Social History: Patient lives at home with her and 2 daughters. No tobacco use. No drug use. Rare alcohol use. They have 3 dogs. She is a full code. 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 HEENT: PERRL, no rhinorrhea, no post nasal drip, oropharynx clear, right tympanic membrane bulging and erythematous. Cardiovascular: Regular rate and rhythm, no murmurs, rubs or gallops, no peripheral edema. Respiratory: Clear to auscultation bilaterally, no tachypnea, no wheezing, no rhonchi, no rubs, no respiratory distress. Abdomen: Soft, nontender, nondistended, no rebound, no guarding, no peritoneal signs. Musculoskeletal: No joint swelling or deformity, normal muscle tone. Skin: No rashes or petechia, no signs of infection. Neurological: Alert and oriented to person, place, and time. Follows all commands. No focal deficits, speech is clear and fluent. Course Vital Signs Vital signs: Vital Signs Temperature 97.7 F 03/14/24 00:49 Pulse Rate 63 03/14/24 00:49 Respiratory Rate 18 03/14/24 00:49 Blood Pressure 128/7
== END 2024-03-14 06:25 | disposition home or self-care (01) ==
PROVIDERS: Emergency Provider Emergency Medicine; PCP Nurse Practitioner Family
DX: H66.91 Otitis media, unspecified, right ear (principal); Z20.822 Contact with and (suspected) exposure to COVID-19; R94.31 Abnormal electrocardiogram [ECG] [EKG]
CPT/HCPCS: 36415; 80053; 84484; 85025; 85610; 85730; 87636; 87651; 93005; 99284

== ENCOUNTER 2024-09-05 13:38 | Emergency (ER) | payer OTHER, SELFPAY ==
--- NOTE | 2024-09-05 13:45 | ED_ITS ---
HPI - Ear Problem General Chief complaint: Ear Stated complaint: Ear Irritation Time Seen by Provider: 09/05/24 13:45 Source: patient, RN notes reviewed and old records reviewed Mode of arrival: ambulatory Limitations: no limitations History of Present Illness HPI Narrative: Patient presents with complaints of left-sided ear pain that began about a week ago. She states that she had a runny nose last week, says this has since subsided. Has been taking [id number] medications intermittently with good results. She denies any injury or trauma. She denies any fever, chills, sweats. Denies any loss of hearing Related Data Home Medications ?Medication ?Instructions ?Recorded ?Confirmed ?Last Taken ?Type fexofenadine .ROUTE 09/05/24 Unknown History Allergies Allergy/AdvReac Type Severity Reaction Status Date / Time Penicillins Allergy Mild Rash Verified 09/05/24 13:44 penicillin G Allergy Unknown Unknown Verified 09/05/24 13:44 erythromycin base AdvReac Mild Nausea and Verified 09/05/24 13:44 Vomiting Review of Systems Review of Systems: All systems reviewed & are unremarkable except as noted in HPI and below Constitutional: Constitutional: Reports no additional constitutional complaints ENT: Reports system reviewed and no additional complaints, except as documented and Reports otalgia Cardiovascular: Cardiovascular: Reports no additional cardiovascular complaints Respiratory: Respiratory: Reports no additional respiratory complaints Gastrointestinal: Gastrointestinal: Reports no additional gastrointestinal complaints PMFSH Past Medical History Medical History Abdominal pain Pelvic pain Cold sore Elevated TSH Surgical History Surgical History H/O LEEP History of Family History Family History Mother Acute myocardial infarction Cerebrovascular accident was previously on plavix. Sibling Acute myocardial infarction some weird heart problem. they said maybe she was born with it? Father Asthma Grandparent Diabetes mellitus Social History Social History Social History: Patient lives at home with her and 2 daughters. No tobacco use. No drug use. Rare alcohol use. They have 3 dogs. She is a full code. 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 There is no relevant family history pertinent to the patient complaint. Exam Const: General: cooperative, no acute distress, alert and awake Orientation/consciousness: oriented to person, oriented to place and oriented to time HENMT: Head: normal to inspection Ears: TM abnormal bulging on the left and erythematous on the left Resp: Effort & Inspection: normal respiratory effort and able to speak in complete sentences Auscultation: clear to auscultation bilaterally, no crackles, no rales, no rhonchi and no wheezes Cardio: Palpation: normal PMI Rate: regular rate Rhythm: regular rhythm Heart sounds: S1 normal heart sound present and S2 normal heart sound present Neuro: General: oriented to person, oriented to place and oriented to time Cranial nerves: Yes CN's II-XII intact bilaterally Psych: Appearance: grossly normal Thought process: Normal thought process present Insight: Good insight present (Psych) Judgement: Good judgement present (Psych) Course Course Level of Care: Express Care Visit Vital Signs Vital signs: Reviewed Medical Decision Making MDM Narrative Medical decision making narrative: History and exam consistent with otitis media. Patient nontoxic appearing, stable for discharge home with p.o. antibiotic therapy. Discharge instructions reviewed with patient, as well as provided in writing per nursing staff. The instructions also include specific and strict return/GO TO THE ER as well as f/u information. All questions have been answered, and the patient deny any further questions with discharge and discharge plan. Some parts of this dictation were generated by voice recognition software and may contain typographical and/or grammatical inaccuracies. Vital Signs Vital Signs: reviewed Lab Data Lab results reviewed: Yes I reviewed the patient's lab results. Lab results narrative: reviewed Discharge Plan Discharge Clinical Impression: Otitis media Qualifiers: Otitis media type: suppurative Chronicity: acute Laterality: left Recurrence: not specified as recurrent Spontaneous tympanic membrane rupture: without spontaneous rupture Qualified Code(s): H66.002 - Acute suppurative otitis media without spontaneous rupture of ear drum, left ear Patient Disposition: Home, Self-Care Condition: Stable Instructions: Antibiotic Form, Ear Infection (ED) Additional Instructions: Take medications as prescribed. Follow-up with primary care provider. Emergency department for new or worse symptoms Patient Language: Indonesian Prescriptions: New cefdinir 300 mg capsule 300 mg PO Q12H 10 Days Qty: 20 0RF No Action fexofenadine [Bella Allergy] .ROUTE Follow-up/Referrals: Nidia Lobo APRN [Primary Care Provider] - 2 Weeks Time of Disposition: 14:15
[2024-09-05 13:47] VITALS: BP 103/53; PULSE 69; RESP 18; TEMP 36.6; O2SAT 99
== END 2024-09-05 14:20 | disposition home or self-care (01) ==
PROVIDERS: Emergency Provider Nurse Practitioner Family; PCP Nurse Practitioner Family
DX: H66.002 Acute suppurative otitis media without spontaneous rupture of ear drum, left ear (principal)
CPT/HCPCS: 99213; G0463

== ENCOUNTER 2025-05-05 10:49 | Emergency (ER) | payer OTHER, SELFPAY ==
--- OUTSIDE RECORDS SUMMARY | 2016-06-16 01:00 | XMS_ITS | Encounter Summary ---
Author Organization [facility] Healthcare Address [address] [place] [address] Care Team Providers Care Teacher Dancing Name Role Phone Unavailable Primary Care Provider Unavailabl e Reason for Visit * Diagnostic Imaging (Routine) - Closed Specialty Diagnoses / Procedures Referred By Teri stoddard Referred To Contact Procedures Breast Imaging Screening Outside Reference Vipul Mccauley NP Phone: tel: fax: Referral ID Status Reason Start Date Expiration Date Visits Re quested Visits Authorized [id number] Closed 11/11/2022 12/11/2023 1 1 Encounter Details Date Type Department Care Team (Late st Contact Info) Description 06/16/2016 Hospital Encounter [facility] [address] [place] [id number] Social History Tobacco Use Types Packs/Day Years Used Date Smoking Tobacco: Never AUDIT-C Answer Date Recorded Q1: How often do you have a drink containing alc ohol? Monthly or less 11/22/2022 Q2: How many drinks containi ng alcohol do you have on a typical day when you are drinking? 1 or 2 11/22/2022 Q3: How often do you have si x or more drinks on one occasion? Less than monthly 11/22/2022 Personal Safety Answer Date Recorded Getting School Help Needed Not on file 10/01 Comments Unknown Sex and Gender Information Value Date Recorded Sex Assigned at Not on file Legal Sex Female 9:51 AM CDT Gender Identity Not on file Sexual Orientation Not on file documented as of this encounter Functional Status * AUDIT-C Score Answer Date of Assessment Author 2 11/22/2022 7:57 AM CDSeema Rubin CMA * Question Answer Date of Assessment Author Q1: How often do you have a drink containing alcohol? Monthly or less 11/22/2022 7:57 AM Seema Garcia CMA Q2: How many drinks containing alcohol do you have on a typical day when you are drinking? 1 or 2 11/22/2022 7:57 AM Seema Garcia CMA Q3: How often do you have six or more drinks on one occasion? Less than monthly 11/22/2022 7:57 AM Seema Garcia CMA documented as of this encounter Plan of Treatment Not on file documented as of this encounter Procedures Procedure Name Priority Date/Time Associated Diagnosis Comments BREAST IMAGING MG SCREENING OUTSIDE REFERENCE Routine 06/16/2016 12:00 AM SURVEILLANCE DIRECTOR documented in this encounter Results * Breast Imaging Screening Outside Reference (06/16/2016 12:00 AM SURVEILLANCE DIRECTOR) Impressions [facility] - 11/11/2022 3:00 PM CDT These images are for Reference purposes only and have not been reviewed by [facility] Radiology. There will be no report generated by a [facility] Radiologist. Narrative [facility] - 11/11/2022 3:00 PM CDT EXAMINATION: Images For Reference Purposes Only us Vipul Mccauley NP IMG MAMMO PROCEDURES Final Result [facility] documented in this encounter Visit Diagnoses Not on filedocumented in this encounter
--- OUTSIDE RECORDS SUMMARY | 2016-06-30 01:00 | XMS_ITS | Encounter Summary ---
Author Organization [facility] Healthcare Address [address] [place] [id number] Care Team Providers Care Industrial Maintenance Mechanic Name Role Phone Unavailable Primary Care Provider Unavailabl e Reason for Visit * Diagnostic Imaging (Routine) - Closed Specialty Diagnoses / Procedures Referred By Teri stoddard Referred To Contact Diagnoses Abnormal mammogram Family history of breast cancer Procedures Breast Imaging Diagnostic Outside Reference Vipul Mccauley NP Phone: tel: fax: Referral ID Status Reason Start Date Expiration Date Visits Re quested Visits Authorized [id number] Closed 11/11/2022 12/11/2023 1 1 Encounter Details Date Type Department Care Team (Late st Contact Info) Description 06/30/2016 Hospital Encounter [facility] [address] [place] [phone] Social History Tobacco Use Types Packs/Day Years [...] of Assessment Author 2 11/22/2022 7:57 AM Seema Garcia CMA * Question Answer Date of Assessment [...] Date/Time Associated Diagnosis Comments BREAST IMAGING MG DIAGNOSTIC OUTSIDE REFERENCE Schedule Routine, Read Routine (OP Routine) 06/30/2016 12:00 AM TRANSMISSION SUPERINTENDENT Abnormal mammogram Family history of breast cancer documented in this encounter Results * Breast Imaging Diagnostic Outside Reference (06/30/2016 12:00 AM TRANSMISSION SUPERINTENDENT) Impressions [facility] - 11/11/2022 2:59 PM CDT These images are for Reference purposes only and have not been reviewed by [facility] Radiology. There will be no report generated by a [facility] Radiologist. Narrative [facility] - 11/11/2022 2:59 PM CDT EXAMINATION: Images For Reference Purposes Only us Vipul Mccauley NP IMG MAMMO PROCEDURES Final Result [facility] documented in this encounter Visit Diagnoses Not on filedocumented in this encounter
--- OUTSIDE RECORDS SUMMARY | 2016-06-30 01:05 | XMS_ITS | Encounter Summary ---
Author Organization [facility] Healthcare Address [address] [place] [address] Care Team Providers Care Underwater Hunter Trapper Name Role Phone Unavailable Primary Care Provider Unavailabl e Reason for Visit * Diagnostic Imaging (Routine) - Closed Specialty Diagnoses / Procedures Referred By Teri stoddard Referred To Contact Procedures Breast Imaging US Outside Reference Vipul Mccauley NP Phone: tel: fax: Referral ID Status Reason Start Date Expiration Date Visits Re quested Visits Authorized [id number] Closed 11/11/2022 12/11/2023 1 1 Encounter Details Date Type Department Care Team (Late st Contact Info) Description 06/30/2016 12:05 AM DOG RAISER Hospital Encounter [facility] [address] [place] [phone] Social History Tobacco Use Types Packs/Day Years [...] Priority Date/Time Associated Diagnosis Comments BREAST IMAGING US OUTSIDE REFERENCE Routine 06/30/2016 12:05 AM DOG RAISER documented in this encounter Results * Breast Imaging US Outside Reference (06/30/2016 12:05 AM DOG RAISER) Impressions [facility] - 11/11/2022 3:01 PM CDT These images are for Reference purposes only and have not been reviewed by [facility] Radiology. There will be no report generated by a [facility] Radiologist. Narrative [facility] - 11/11/2022 3:01 PM CDT EXAMINATION: Images For Reference Purposes Only us Vipul Mccauley NP IMG MAMMO PROCEDURES Final Result [facility] documented in this encounter Visit Diagnoses Not on filedocumented in this encounter
--- OUTSIDE RECORDS SUMMARY | 2017-06-07 01:00 | XMS_ITS | Encounter Summary ---
Author Organization [facility] Healthcare Address [address] [place] [address] Care Team Providers Care Account Support Manager Name Role Phone Unavailable Primary Care Provider Unavailabl e Reason for Visit * Diagnostic Imaging (Routine) - Closed Specialty Diagnoses / Procedures Referred By Teri stoddard Referred To Contact Procedures Breast Imaging US Outside Reference Vipul Mccauley NP Phone: tel: fax: Referral ID Status Reason Start Date Expiration Date Visits Re quested Visits Authorized [id number] Closed 11/11/2022 12/11/2023 1 1 Encounter Details Date Type Department Care Team (Late st Contact Info) Description 06/07/2017 Hospital Encounter [facility] [address] [place] [phone] Social History Tobacco Use Types Packs/Day [...] Comments BREAST IMAGING US OUTSIDE REFERENCE Routine 06/07/2017 12:00 AM SALES REPRESENTATIVE LIVESTOCK documented in this encounter Results * Breast Imaging US Outside Reference (06/07/2017 12:00 AM SALES REPRESENTATIVE LIVESTOCK) Impressions [facility] - 11/11/2022 3:00 PM CDT These images are for Reference purposes only and have not been reviewed by [facility]. There will be no report generated by a [facility] Radiologist. Narrative [facility] - 11/11/2022 3:00 PM CDT EXAMINATION: Images For Reference Purposes Only us Vipul Mccauley NP IMG MAMMO PROCEDURES Final Result [facility] documented in this encounter Visit Diagnoses Not on filedocumented in this encounter
--- OUTSIDE RECORDS SUMMARY | 2025-05-05 10:52 | XMS_ITS | Clinical Summary ---
Author Organization [facility] [address] Address [address] [place] [address] Care Team Providers Care Roof Shingler Name Role Phone Nidia Lobo PACK CHANGER Primary Care Provider + Allergies Active Allergy Reactions Criticality Noted Date Comments Penicillins Rash Medium 12/03/2021 Azithromycin Nausea & Vomiting Low 12/03/2021 Medications colchicine (COLCRYS) 0.6 mg tablet colchicine 0.6 mg tablet TAKE 1 TABLET BY MOUTH TWICE A DAY Active Active Problems Problem Noted Date Diagnosed Date Abnormal mammogram 11/22/2022 Family History Medical History Relation Name Comments Diabetes Brother Prostate cancer Father Breast cancer Maternal Grandmother Fibrocystic breast disease Mother Heart attack Mother Stroke Mother Heart attack Sister Relation Name Status Comments Brother Father Maternal Grandmother Mother Sister Social History Tobacco Use Types Packs/Day Years [...] on file Sexual Orientation Not on file Obstetrics History Last Filed Vital Signs Vital Sign Reading Time Taken Comments Blood Pressure 124/75 12/03/2021 12:22 PM CDT Pulse 77 12/03/2021 12:22 PM CDT Temperature 36.6 C (97.8 F) 12/03/2021 12:22 PM CDT Respiratory Rate - - Oxygen Saturation 97% 12/03/2021 12:22 PM CDT Inhaled Oxygen Concentration - - Weight 84.8 kg (187 lb) 11/22/2022 7:56 AM CDT Height 167.6 cm (5' 6) 11/22/2022 7:56 AM CDT Body Mass Index 30.18 11/22/2022 7:56 AM CDT Plan of Treatment Health Maintenance Due Date Last Done Comments Cervical Cancer Screening 1972 Colon Cancer Screening-Colonoscopy 1972 Depression Screening 1972 Hepatitis C Screening 1972 DTaP/Tdap/Td Vaccine (1 - Tdap) 1983 Hepatitis B Screening 1990 Regular Well Visit/Exam 18-64 1990 Zoster Vaccine (1 of 2) 2022 Breast Cancer Screening-Mammogram 11/29/2024 11/30/2023, 08/25/2022, 08/17/2022, Additional history exists Covid-19 Vaccine ( season) 2025 07/06/2021, 07/28/2020, 07/07/2020 Influenza Vaccine (#1) 2025 7, 04/01/2016, 07/18/2014 Pneumococcal vaccine <65 Aged Out No longer eligible based on patient's age to complete this topic Procedures Procedure Name Priority Date/Time Associated Diagnosis Comments SCREENING MAMMOGRAM BILATERAL W DUY Schedule Routine, Read Routine (OP Routine) 11/30/2023 8:42 AM CDT Screening mammogram, encounter for from Last 3 Months or Most Recently Relevant to Health Maintenance Results * Screening Mammogram Bilateral W Duy (11/30/2023 8:42 AM CDT) Anatomical Region Laterality Modality Breast Bilateral Mammography Narrative 12/01/2023 10:14 AM CDT Mammogram Technique: Bilateral Digital Breast Tomosynthesis, Bilateral C-view 2D Screening mammogram. Views obtained: bilateral craniocaudal and bilateral mediolateral oblique. Computer Aided Detection was performed. Mammogram Findings: The present examination has been compared to prior imaging studies performed on 06/16/2016, 06/30/2016, 08/16/2022 and 09/08/2022. There are scattered areas of fibroglandular density. There are multiple masses in both breasts. There is no suspicious abnormality in either breast. Impression: Findings in both breasts are benign. Annual screening mammography is recommended. OVERALL FINAL ASSESSMENT: BI-RADS CATEGORY 2: Benign. Procedure Note Trinh Garrett MD - 12/01/2023 Mammogram Technique: Bilateral Digital Breast Tomosynthesis, Bilateral C-view 2D Screening mammogram. Views obtained: bilateral craniocaudal and bilateral mediolateral oblique. Computer Aided Detection was performed. Mammogram Findings: The present examination has been compared to prior imaging studies performed on 06/16/2016, 06/30/2016, 08/16/2022 and 09/08/2022. There are scattered areas of fibroglandular density. There are multiple masses in both breasts. There is no suspicious abnormality in either breast. Impression: Findings in both breasts are benign. Annual screening mammography is recommended. OVERALL FINAL ASSESSMENT: BI-RADS CATEGORY 2: Benign. us Self Screening Mammogram IMG MAMMO PROCEDURES Fi nal Result from Last 3 Months or Most Recently Relevant to Health Maintenance Insurance [facility] HMO/PPO Address: [facility] [address] [place] [address] [facility]/PPO Address: [address] [address] Care Teams Roof Shingler Relationship Specialty Start Date End Date Nidia Lobo NP PCP - General Nurse Practitioner 11/17/23
--- OUTSIDE RECORDS SUMMARY | 2025-05-05 10:52 | XMS_ITS | Encounter Summary ---
Author Organization [facility] Address [address] [place] [address] Phone Care Team Providers Care Clerical Coordinator Name Role Phone Marlys Natarajan Primary Care Pr ovider Nidia Lobo ELEVATED WORK PLATFORM OPERATOR Primary Care Provider + Encounter Details Date Type Department Care Team (Latest Contact Info) Description 11/17/2021 Orders Only [facility] Scanning, Provider Social History Tobacco Use Types Packs/Day Years Used Date Smoking Tobacco: Never Assessed Comments Unknown Sex and Gender Information Value Date Recorded Sex Assigned at Not on file Legal Sex Female 9:51 AM CDT Gender Identity Not on file Sexual Orientation Not on file documented as of this encounter Plan of Treatment Not on file documented as of this encounter Procedures Procedure Name Priority Date/Time Associated Diagnosis Comments CARDIOLOGY DOCUMENT SCAN 11/17/2021 documented in this encounter Results * CARDIOLOGY DOCUMENT SCAN (11/17/2021) Anatomical Region Laterality Modality Other us Provider Scanning [facility] CARDIAC SERVICES PROCEDURES Final Result documented in this encounter Visit Diagnoses Not on filedocumented in this encounter Care Teams Clerical Coordinator Relationship Specialty Start Date End Date Marlys Natarajan PA PCP - General Physician Golf Cart Attendant 11/17/21 11/16/23 Nidia Lobo NP PCP - General Nurse Practitioner 11/17/23 documented as of this encounter
--- OUTSIDE RECORDS SUMMARY | 2025-05-05 10:52 | XMS_ITS | Clinical Summary ---
Author Organization [facility] Address [address] [place] [address] Care Team Providers Care Airplane Mechanic Apprentice Name Role Phone Unavailable Primary Care Provider Unavailabl e Source Comments [facility],non-owned Affiliates and Associated Physician Practices is amultiple site organization consisting of ambulatory clinics and hospital sitesin [place], [place], [place] and [place]. This disclosure is being madepursuant to the Care Everywhere program and may not contain all information available regarding this patient. 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 Gender Identity Not on file Sexual Orientation Not on file Plan of Treatment Health Maintenance Due Date Last Done Comments COLOGUARD (AGES 45-75) - COL ON CA SCREENING 1972 COLON MONITORING 1972 COLONOSCOPY - COLON CA SCREENING 1972 CT COLONOGRAPHY - COLON CA SCREENING 1972 Colorectal Cancer Screening 1972 FIT - COLON CA SCREENING 1972 FLEX SIG - COLON CA SCREENING 1972 LIPID TESTING 1972 MAMMOGRAM 1972 HIV SCREENING 1987 HEPATITIS C SCREENING 06/07/1990 DTAP/TDAP/TD VACCINES (1 - Tdap) 1991 HEPATITIS B VACCINE (1 of 3 - 19+ 3-dose series) 1991 PAP SMEAR 1993 PNEUMOCOCCAL VACCINE 50+ (1 of 1 - PCV) 2022 ZOSTER VACCINE (1 of 2) 2022 DEPRESSION SCREENING 07/18/2024 COVID-19 VACCINE (1 - 2023-2 5 season) 2025 INFLUENZA VACCINE (#1) 2025 HIB VACCINE Aged Out No longer eligi ble based on patient's age to complete this topic HPV VACCINE Aged Out No longer eligi ble based on patient's age to complete this topic MENINGOCOCCAL (Group B) VACC INE SHARED DECISION-MAKING Aged Out No longer eligibl e based on patient's age to complete this topic MENINGOCOCCAL GROUPS A/C/Y/W VACCINE Aged Out No longer eligible b ased on patient's age to complete this topic Insurance SELF PAY NO INSURANCE Member Subscriber Plan / Payer (Ef fective for All Dates) Name:Philip Reyes Member ID:Not on file Relation to Subscriber:Not on file Name:PHILIP REYES Subscriber ID:Not on file Address: [address] [place], [place] [id number] Payer ID:Not on file Group ID:Not on file Type:Self Pay Address: [facility] SELF PAY NO INSURANCE Member Subscriber Plan / Payer (Ef fective for All Dates) Name:Philip Reyes Member ID:Not on file Relation to Subscriber:Not on file Name:PHILIP REYES Subscriber ID:Not on file Address: [address] [place], [place] [id number] Payer ID:Not on file Group ID:Not on file Type:Self Pay Address: [facility] SELF PAY NO INSURANCE Member Subscriber Plan / Payer (Ef fective for All Dates) Name:Philip Reyes Member ID:Not on file Relation to Subscriber:Not on file Name:ERICTUSHARA Subscriber ID:Not on file Address: [address] [place] [id number] Payer ID:Not on file Group ID:Not on file Type:Self Pay Address: [facility]
--- OUTSIDE RECORDS SUMMARY | 2025-05-05 10:52 | XMS_ITS | Clinical Summary ---
Author Organization [facility] Address [address] [place] [id number] Care Team Providers Care Inside Trucker Name Role Phone Marlys Natarajan Primary Care Provider [phone] Allergies No known active allergies Social History Tobacco Use Types Packs/Day Years Used Date Smoking Tobacco: Never Assessed Comments Unknown Sex and Gender Information Value Date Recorded Sex Assigned at Not on file Legal Sex Female 8:08 PM CDT Gender Identity Not on file Sexual Orientation Not on file Last Filed Vital Signs Vital Sign Reading Time Taken Comments Blood Pressure 149/101 12/07/2021 9:46 AM CDT Pulse 99 12/07/2021 9:46 AM CDT Temperature 36.6 C (97.8 F) 12/07/2021 9:46 AM CDT Respiratory Rate 18 12/07/2021 9:46 AM CDT Oxygen Saturation 99% 12/07/2021 9:46 AM CDT Inhaled Oxygen Concentration - - Weight 87.7 kg (193 lb 5.5 oz) 12/07/2021 9:46 A M CDT Height 167.6 cm (5' 6) 12/07/2021 9:46 AM CDT Body Mass Index 31.21 12/07/2021 9:46 AM CDT Plan of Treatment Health Maintenance Due Date Last Done Comments Cervical Cancer Screening Pa p Smear (Age 30 to 64) Every 3 Years 1972 Colorectal Cancer Screening Colonoscopy (10 Years) 1972 Annual Physical 1975 Hepatitis C 1990 DTaP, Tdap and Td Vaccines ( 1 - Tdap) 1991 Hepatitis B Vaccines (1 of 3 - 19+ 3-dose series) 1991 Cervical Cancer Screening Pa p with HPV Testing (Age 30 to 64) Every 5 Years 2002 Cervical Cancer Screening with HPV 2002 Mammogram Screening 2012 Pneumococcal Vaccine: 50+ Ye ars (1 of 1 - PCV) 2022 Zoster Vaccines (1 of 2) 2022 COVID-19 Vaccine (1 - 2023-2 5 season) 2025 Influenza Adult (#1) 2025 Hepatitis A Vaccines Aged Out No long er eligible based on patient's age to complete this topic Meningococcal B Vaccine Aged Out No l onger eligible based on patient's age to complete this topic Meningococcal Vaccine Aged Out No angela mila eligible based on patient's age to complete this topic RSV Immunizations Under 20 Months Aged Out No longer eligible based on patient's age to complete this topic Care Teams Inside Trucker Relationship Specialty Start Date End Date Marlys Natarajan PA PCP - General PHYSICIAN TOMBSTONE POLISHER 12/07/21
--- OUTSIDE RECORDS SUMMARY | 2025-05-05 10:52 | XMS_ITS | Data Portability ---
Author Organization [facility] [place] Address [address] [place] [address] Assessment Encounter Date Assessment Date Assessment LastModified by Organization Details LastModified Time 12/06/2022 12/06/2022 emb done, will contact with results referral to Dr Whitlokc for weight loss Discussed HRT options if EMB benign. Discussed RBA of HRT. she would like oral estradiol and cyclic prometrium. will send scripts if EMB is benign. WWE due in January, [email or web address] Not available 12/07/2022 22:07:49 02/07/2023 02/07/2023 healthy female exam/menopause patient declines std testing pap done for LEEP 5 yr ago mammogram *due in Jul colonoscopy discussed and encouraged. FH colon cancer- no cologuard. will call for order when new insurance starts. dexa baseline in 5-10 years will decrease estradiol to 0.5mg. will schedule for weight loss with Dr. Whitlock. Encouraged weight bearing exercise and 1500mg daily of Calcium with Vitamin D FU 1 year or prn [email or web address] Not available 02/07/2023 12:56:50 11/29/2023 11/29/2023 CT scan tiff get from Dorian and let her know if further f/u with landfill attendant MD is required. [email or web address] Not available 11/29/2023 10:44:54 04/30/2024 04/30/2024 Annual gynecological exam performed. Patient will come back in a year unless there are new symptoms. [email or web address] Not available 04/30/2024 16:47:16 Plan of Treatment Reminders Order Date Submit Date Provider Last Modified By Organization Details Last Modified Time Details Appointments None recorded. Lab HBsAg (hepatitis B surface Ag), serum 2023 [facility] (Lab), [address], [place], [address], 4 15:55:44 Referral None recorded. Procedures None recorded. Surgeries None recorded. Imaging None recorded. Medication Orders Divigel 1 mg/gram (0.1 %) transdermal gel packet 2023 024 [email or web address] [address], [place], [address], 4 10:44:31 CombiPatch 0.05 mg-0.14 mg/24 hr transdermal 2023 [place] [facility] [address], [place], [address], 4 11:14:59 progesteron e micronized 200 mg capsule 2022 [place] [facility] [address], [place], [address], 4 12:22:13 estradiol 0.5 mg tablet 2022 [place] [facility] [address], [place], [address], 4 12:22:04 Patient TargetsNo targets recorded. Patient InstructionsNo instructions recorded. Reason for Referral None Reported. Results Created Date Observation Date Name Description Value Unit Range Abnormal Flag Note LastModifiedBy Organization Detail LastModifiedTime 12/07/19 23 12/06/2022 SURGI JOSELYN PATHO LOGY surgical pathology SEE RESULT S BELOW CASE REPOR T: Surgi joselyn Patho logy Repor t Case: [id number] Autho jethro lim Provi bernard: Astrid Urbina MD Colle cted: 12/06 1723 Order ing Locat ion: [place] Patho logy Recei bryanna: 12/07 0205 Patho logis t: Irina White MD Speci men: Endom etriu m, EMB FINAL DIAGN OSIS: Endom etriu m, biops y: -Diso rdere d proli ferat chrissy endom etriu m. -No endom etria l hyper plasi a or malig nant tumor ident ified . Elect bryn de jesus d by Irina White MD on 2022 at 3:46 PM ----- ----- ----- ----- ----- ----- ----- ----- ----- ----- ----- ----- ----- ----- ----- ----- ----- ---- CLINI JOSELYN INFOR MATIO N: n93.9 MICRO SCOPI C DESCR IPTIO N: A micro scopi c exami natio n was perfo rmed. GROSS DESCR IPTIO N: A. Endom etriu m. The speci men is label ed with the patie nt's name, checoog raphlina cs and EMB . Recei bryanna in forma jesus is a 2.0 x 2.0 x 0.5 [address] of mucus and red-t an tissu e. The entir e speci men is submi tted in one casse tte. Gross ed by Mary russo Not Available [facility] (Lab) [address], [place], [address], 12/07/2022 16:50:07 02/08/20 23 02/07/2023 IMAGE GUIDE D PAP AND HPV REGAR DLESS image guided Pap, HPV regardless of Pap result SEE RESULT S BELOW CASE REPOR T: Cytol ogy Gynec ologi joselyn Repor t Case: [id number] Autho jethro lim Provi bernard: Astrid Urbina MD Colle cted: 02/07 1514 Order ing Locat ion: [place] Patho logy Recei bryanna: 02/08 0606 First Scree n: Chloe Hawley Speci men: Scree nona Pap - Image d, Cervi x STATE MENT OF ADEQU ACY: Satis facto ry for evalu ation Trans forma tion zone compo nent prese nt FINAL DIAGN OSIS: Negat chrissy for Intra epith elial Lesio n or Medardo wray (NIL) . Shift in feliz sugge stive of bacte rial vagin osis. Elect bryn donaldson liza d by Chloe Hawley on 2022 at 12:24 PM ----- ----- ----- ----- ----- ----- ----- ----- ----- ----- ----- ----- ----- ----- ----- ----- ----- ---- HPV RESUL TS: HPV mRNA E6/E7 : No HPV mRNA Detec kirill NOTE: This high risk HPV mRNA assay detec ts fourt een high- risk HPV types (16, 18, 31, 33, 35, 39, 45, 51, 52, 56, 58, 59, 66, 68) witho ut diffe renti ation . COMME NT: This speci men was revie wed by a Cytot echno logis t and/o r Patho logis t (as indic ated in this repor t) after evalu ation using the Thinp rep Imagi ng Syste m. CLINI JOSELYN INFOR MATIO N: Menst rual Statu s: LMP (if appli cable ): Clini joselyn Histo ry/Pr eviou s Pap: Type of Neopl stefany (if appli cable ): Signi fican t Clini jsoelyn Findi ngs: Other Histo ry: Hormo johanne (if appli cable ): PAP EDUCA VALENTIN L NOTE: The Pap Test is a scree nona test with an inher ent false negat chrissy rate. Liqui d-bas ed sampl ing may decre ase, but will not elimi antonio, false negat chrissy resul ts. A negat chrissy resul t does not precl ude the prese nce and/o r devel opmen t of disea se, since the prese nce of abnor mal cells in the sampl e depen ds on the locat ion of the lesio n and sampl ing techn ique. Simon nued regul ar scree nona is the best metho d of cance r preve ntion . If repor kirill cytol ogic findi ng do not corre late with physi joselyn and/o r histo rical findi ngs, furth er inves tigat ion is recom josh d, as clini dom warra nted. Not Available [facility] (Lab) [address], [place], [address], 02/08/2023 13:51:15 04/30/20 24 04/30/2024 CT/GC AND TRICH OMONA S VAGIN KARLA (RRNA ), URINE chlamydia trachomatis, PCR Negati ve negati ve Not Available [facility] (Lab) [address], [place], [address], 05/01/2024 13:16:56 04/30/20 24 04/30/2024 CT/GC AND TRICH OMONA S VAGIN KARLA (RRNA ), URINE neisseria gonorrhoeae, PCR Negati ve negati ve Not Available [facility] (Lab) [address], [place], [address], 05/01/2024 13:16:56 04/30/20 24 04/30/2024 CT/GC AND TRICH OMONA S VAGIN KARLA (RRNA ), URINE trichomonas vaginalis ribosomal RNA (rrna) Negati ve negati ve Not Available [facility] (Lab) [address], [place], [address], 05/01/2024 13:16:56 04/30/20 24 04/30/2024 HBSAG /HCV/ HIV/R MT hepatitis B surface antigen Non-re active non-re active This assay was perfo rmed using [employer] n reage nts and test kits. Value s obtai pham with other assay metho ds or kits canno t be used inter white eably . Not Available [facility] (Lab) [address], [place], [address], 05/01/2024 15:55:44 04/30/20 24 04/30/2024 HBSAG /HCV/ HIV/R MT RPR screen Nonrea ctive nonrea ctive Not Available [facility] (Lab) [address], [place], [address], 05/01/2024 15:55:44 04/30/20 24 04/30/2024 HBSAG /HCV/ HIV/R MT HIV antigen/anti body Nonrea ctive nonrea ctive HIV-1 antig en and HIV-1 /HIV- 2 antib odies were not detec kirill. No labor atory evide nce of HIV infec tion. Not Available [facility] (Lab) [address], [place], [address], 05/01/2024 15:55:44 04/30/20 24 04/30/2024 HBSAG /HCV/ HIV/R MT hepatitis C antibody Non-re active non-re active Antib odies to HCV Not Detec kirill, does not exclu de the possi bilit y of expos ure to HCV. Not Available [facility] (Lab) [address], [place], [address], 05/01/2024 15:55:44 10/20/19 24 10/19/2023 US, pelvi s No observ ation record ed. [place] [id number] [facility] [address], [place], [address], 10/20/2023 15:07:04 11/29/1910/31/2023 CT, abdom en + pelvi s, w/ contr ast No observ ation record ed. [place] [id number] [facility] [address], [place], [address], 12/01/2023 19:56:38 Result Notes None recorded. Problems Name Problem SNOMED Code Status Onset Date Resolution Date Notes Provider Name and Address Organization Details Recorded Time Routine antenata l care Completed 201110/23/2020 Supervis ion of other normal pregnanc y;Record ed Elsewher e: No Locat ion: [facility] S ource: EHR Needle Loom Setter garima: N Remiti ce ID: 0001 Justice lable Time: 09:30:00 AM Flora antonio [facility] 12:32:31 Amenorrh ea [id number] Completed 201110/23/2020 Absence of menstrua tion;Rec orded Elsewher e: No Locat ion: [facility] S ource: EHR Needle Loom Setter garima: N Remiti ce ID: 0001 Justice lable Time: 09:30:00 AM Flora antonio [facility] 12:31:42 Pregnanc y test positive [id number] Completed 201110/23/2020 Pregnanc y examinat ion or test, positive result;R ecorded Elsewher e: No Locat ion: [facility] S ource: EHR Needle Loom Setter garima: N Remiti ce ID: 0001 Justice lable Time: 09:30:00 AM Flora antonio [facility] 12:32:08 Screenin g for malignan t neoplasm of cervix Completed 201110/23/2020 Screenin g for malignan t neoplasm s of the cervix;R ecorded Elsewher e: No Locat ion: [facility] S ource: EHR Needle Loom Setter garima: N Remiti ce ID: 0001 Justice lable Time: 09:30:00 AM Flora antonio [facility] 12:32:33 Incomple te [id number] Completed 201110/23/2020 Spontane ous , incomple te, without mention of complica tion;Rec orded Elsewher e: No Locat ion: [facility] S ource: EHR Needle Loom Setter garima: N Remiti ce ID: 0001 Justice lable Time: 10:30:00 AM Flora antonio [facility] 12:31:56 Vaginiti s and vulvovag initis Completed 201110/23/2020 Vaginiti s;Record ed Elsewher e: No Locat ion: [facility] S ource: E[employer] Needle Loom Setter garima: N Remiti ce ID: 0001 Justice lable Time: 11:00:00 AM Flora antonio [facility] 12:32:42 Complete Completed 201110/23/2020 Spontane ous , complete , without mention of complica tion;Rec orded Elsewher e: No Locat ion: [facility] S ource: EHR Needle Loom Setter garima: N Remiti ce ID: 0001 Justice lable Time: 05:15:00 PM Flora antonio, [facility] 12:31:49 Speciali zed medical examinat ion Completed 201310/23/2020 Gynecolo gical Examinat ion;Ravi rded Elsewher e: No Locat ion: [facility] S ource: E[employer] Needle Loom Setter garima: N Remiti ce ID: 0001 Justice lable Time: 10:00:00 AM Flora antonio [facility] 12:32:38 Adult health examinat ion Completed 201310/23/2020 ROUTINE MEDICAL EXAM;Rec orded Elsewher e: No Locat ion: [facility] S ource: EHR Needle Loom Setter garima: N Remiti ce ID: 0001 Justice lable Time: 10:00:00 AM Flora antonio [facility] 12:31:41 Cytologi c finding Completed 201410/23/2020 Papanico laou smear of cervix with high grade squamous intraepi thelial lesion (HGSIL); Recorded Elsewher e: No Locat ion: [facility] S ource: EHR Needle Loom Setter garima: N Practi ce ID: 0001 Justice lable Time: 11:30:00 AM Flora antonio [facility] 12:31:52 Pregnanc y test negative [id number] Completed 201410/23/2020 Pregnanc y examinat ion or test, negative result;R ecorded Elsewher e: No Locat ion: [facility] S ource: EHR Needle Loom Setter garima: N Practi ce ID: 0001 Justice lable Time: 11:30:00 AM Flora antonio, [facility] 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 12:31:46 Pre-surg bradford evaluati on Completed 201410/23/2020 Pre-oper ative examinat ion, unspecif ied;Ravi rded Elsewher e: No Locat ion: [facility] S ource: EHR Needle Loom Setter garima: N Practi ce ID: 0001 Justice lable Time: 04:00:00 PM Flora antonio, [facility] 12:32:06 Cervical intraepi thelial neoplasi a grade 1 [id number] Completed 201410/23/2020 GERMÁN 1 Mild Dysplasi a Of Cervix;P ractice ID: 0001 Flora antonio, [facility] 12:31:45 Postoper ative follow-u p visit Completed 201410/23/2020 Follow-u p examinat ion, followin g unspecif ied surgery; Recorded Elsewher e: No Locat ion: Mariannaalban last [facility] S ource: EHR Needle Loom Setter garima: N Niharika ce ID: 0001 Justice lable Time: 03:00:00 PM Flora antonio, [facility] 12:32:04 Hemorrha ge AND/OR hematoma complica ting procedur e Completed 201410/23/2020 Post operativ e bleeding ;Recorde d Elsewher e: No [facility]: EHR Needle Loom Setter garima: N Niharika ce ID: 0001 Justice lable Time: 05:00:00 PM Flora antonio, [facility] 12:31:55 Noninfla mmatory cervical disorder [id number] Completed 201410/23/2020 Other specifie d noninfla mmatory disorder s of cervix;P ractice ID: 0001 Flora antonio, [facility] 12:32:03 Missed miscarri age [id number] Completed 201410/23/2020 Missed ;Recorde d Elsewher e: No Locat ion: Mariannaalban berhane [facility] S ource: EHR Needle Loom Setter garima: Suzanne Bundy ce ID: 0001 Justice lable Time: 08:15:00 AM Flora antonio, [facility] 12:32:01 Threaten ed miscarri age [id number] Completed 201410/23/2020 Threaten ed , antepart um;Recor ded Elsewher e: No [facility]at [facility] S ource: E[employer] Needle Loom Setter garima: N Niharika ce ID: 0001 Justice lable Time: 08:14:00 AM Flora antonio, [facility] 12:32:40 Cyst of ovary [id number] Completed 201410/23/2020 OVARIAN CYST;Pra ctice ID: 0001 Flora antonio [facility] 12:31:50 Blood leukocyt e number above referenc e range [id number] Completed 201410/23/2020 Elevated white blood cell count, unspecif ied;Ravi rded Elsewher e: No Locat ion: [facility] S ource: EHR Needle Loom Setter garima: N Remiti ce ID: 0001 Justice lable Time: 10:00:00 AM Flora antonio [facility] 12:31:58 Urinary tract infectio us disease [id number] Completed 201410/23/2020 UTI;Ravi rded Elsewher e: No Locat ion: [facility] S ource: EHR Needle Loom Setter garima: N Niharika ce ID: 0001 Justice lable Time: 10:00:00 AM Flora Bella [facility] 12:32:[address] Concept Completed 201510/23/2020 Encntr for general adult medical exam w/o abnormal findings ;Recorde d Elsewher e: No Locat ion: [facility] S ource: EHR Needle Loom Setter garima: N Remiti ce ID: 0001 Justice lable Time: 09:00:00 AM Flora antonio [facility] 12:32:36 Evaluati on finding Completed 201510/23/2020 Oth abn and inconclu sive findings on dx imaging of breast;R ecorded Elsewher e: No Locat ion: [facility] S ource: E[employer] Needle Loom Setter garima: N Remiti ce ID: 0001 Justice lable Time: 02:33:48 PM Flora antonio [facility] 12:31:48 Breast lump [id number] Completed 201610/23/2020 Unspecif ied lump in unspecif ied breast;R ecorded Elsewher e: No Locat ion: Jeffrey last [facility] S ource: EHR Needle Loom Setter garima: N Practi ce ID: 0001 Justice lable Time: 10:30:00 AM Flora antonio [facility] 12:31:[address] Concept Completed 201610/23/2020 Encntr for landfill attendant exam (general ) (routine ) w/o abn findings ;Practic e ID: 0001 Flora antonio [facility] 12:32:37 Screenin g for malignan t neoplasm of rectum Completed 201610/23/2020 Encounte r for screenin g for malignan t neoplasm of rectum;P ractice ID: 0001 Flora Shayne [facility] 12:32:35 Acute vaginiti s [id number] Completed 201810/23/2020 Acute vaginiti s;Practi ce ID: 0001 Flora Bella [facility] 12:31:39 Finding of regulari ty of menstrua l cycle Completed 201910/23/2020 Irregula r menstrua tion, unspecif ied;Prac yanet ID: 0001 Flora Kongan marisela [facility] 12:31:53 Menopaus e present [id number] Completed 201910/23/2020 Menopaus al and female climacte debbie states;P ractice ID: 0001 Florajana Bella marisela [facility] 12:31:59 Prediabe brooke [id number] Active 2022 Astrid Castellanos MD [address], [place], [address], [facility] 3 09:52:28 History of loop electros urgical excision procedur e [id number] 9102 Active 2022 Astrid Castellanos MD [address], [place], [address], [facility] 3 11:58:01 Hormone replacem ent therapy Active 2022 Astrid Castellanos MD [address], [place], [address], [facility] 3 11:58:02 Problem Notes None recorded. Procedures Surgical History Date Name Laterality Status Provider Name and Address Organization Details Recorded Time 09/08/19 24 [facility]23 12:21:49 02/08/20 23 Date of Last Pap Smear [facility] 10/20/2023 12:24:05 12/07/19 23 Endometrial Biopsy completed Astrid Castellanos MD [address], [place], [address], [facility] 12/07/2022 22:06:05 09/08/19 23 Date of Last Mammogram completed Shannan De Leon [facility] 10/20/2023 12:23:18 08/19/19 21 Endometrial Biopsy completed Carlos Whitlock MD [address], [place], [address], [facility] 08/19/2020 11:02:17 08/22/19 15 LEEP completed Flora Bella [facility] 10/23/2020 12:43:12 07/25/19 15 Colposcopy completed Flora Bella [facility] 10/23/2020 12:40:26 07/18/19 14 Caesarean Section completed Flora Bella [facility] 10/23/2020 12:43:41 Imaging Results None recorded. Procedure Notes None recorded. Medical Equipment None Reported. Allergies Allergen ID Allergen Name Allergen Category Reaction Reaction Severity Criticality Documentation Date Start Date Code Code System Note Provider Name and Address Organization Details Recorded Time 81881 Product containin g penicilli n (product) medicatio n Not available Not available Not available 07/04/2020 01286 8001 SNOMED Comme nt: [facility]at [facility]; Not Available [facility] 14:20[facility]52 Medications Name Sig Start Date Stop Date Status Note LastModified by Organization Details LastModified Time Xanax 0.5 mg tablet Take 1 tablet 2 hours before the procedur e. 02/07 completed Not Available Not Available Not Available Apri 0.15 mg-0.03 mg tablet take 1 tablet by oral route every day 10/24 completed Prescrib ed Elsewher e: No [facility] By: jcarlos tz Vivianaou nter DateTime : 08/29/19 13 01:25:12 PM Not Available Not Available Not Available CombiPatc h 0.05 mg-0.14 mg/24 hr transderm al Apply 1 patch twice a week by transder mal route as directed for 30 days, for Menopaus e. 10/24 completed Not Available Not Available Not Available ibuprofen 800 mg tablet Take 1 tablet 2 hours before the procedur e. 02/07 completed Not Available Not Available Not Available fluconazo le 150 mg tablet TAKE 1 TABLET (150MG) BY ORAL ROUTE ONCE active Not Available Not Available No t Available valacyclo vir 1 gram tablet TAKE 1 TABLET BY MOUTH EVERY 12 HOURS FOR 2 DAYS NEEDED COLD SORE 04/30 completed Not Available Not Available Not Available medroxypr ogesteron e 2.5 mg tablet Take 1 tablet every day by oral route at bedtime for 30 days, for Menopaus e uterine lining protecti on. 04/30 completed Not Available Not Available Not Available metronida zole 0.75 % (37.5 mg/5 gram) vaginal gel INSERT 1 APPLICAT ORFUL BY VAGINAL ROUTE FOR 5 NIGHTS AT BEDTIME 10/05 completed Not Available Not Available Not Available ondansetr on HCl 4 mg tablet TAKE 2 TABLETS BY MOUTH DAILY OR NEEDED 2023 active Not Available Not Available Not Avai lable Bella 60 mg tablet take 1 tablet by oral route 2 times every day 05/02 completed Prescrib ed Elsewher e: Yes [facility] By: hedy villela DateTime : 05/02/20 14 10:00:00 AM Not Available Not Available Not Available pantopraz ole 20 mg tablet,de layed release TAKE 1 TABLET BY MOUTH EVERY DAY IN THE MORNING 10/05 completed Not Available Not Available Not Available Microgest in FE 08/06 (28) 1 mg-20 mcg (21)/75 mg (7) tablet take 1 tablet by oral route every day 05/02 completed Prescrib ed Elsewher e: No Locat ion: Donovan berhane [facility] odify By: ely huber DateTime : 10/25/19 13 08:45:00 AM Not Available Not Available Not Available Zofran 8 mg tablet Take 1 tablet 2 hours before the procedur e. 02/07 completed Not Available Not Available Not Available alprazola m 0.25 mg tablet TAKE 1 TABLET BY MOUTH EVERY DAY AT BEDTIME NEEDED FOR SLEEP active Not Available Not Available No t Available estradiol 0.025 mg/24 hr weekly transderm al patch APPLY 1 PATCH EVERY WEEK BY TRANSDER MAL ROUTE DIRECTED FOR 30 DAYS. 12/21 completed Not Available Not Available Not Available estradiol 1 mg tablet TAKE 1 TABLET BY MOUTH EVERY DAY 10/19 completed Not Available Not Available Not Available betametha sone valerate 0.1 % topical cream apply by topical route every day a thin layer to the affected area(s) 05/29 completed Prescrib ed Elsewher e: No [facility] By: damaris huber DateTime : 11/09/19 12 11:00:00 AM Not Available Not Available Not Available progester one micronize d 200 mg capsule Take one capsule orally for the first 7 days of each month. 10/19 completed Not Available Not Available Not Available fluoxetin e 10 mg capsule TAKE 1 CAPSULE BY MOUTH EVERY DAY 10/05 completed Not Available Not Available Not Available Theodore 10 mg-325 mg tablet Take 1 tablet 2 hours before the procedur e. 02/07 completed Not Available Not Available Not Available estradiol 0.5 mg tablet Take 1 tablet every day by oral route. 10/19 completed Not Available Not Available Not Available cefuroxim e axetil 500 mg tablet TAKE 1 TABLET BY MOUTH EVERY 12 HOURS 01/19 completed Not Available Not Available Not Available colchicin e 0.6 mg tablet TAKE 1 TABLET BY MOUTH TWICE A DAY 10/05 completed Not Available Not Available Not Available cefdinir 300 mg capsule TAKE 1 CAPSULE BY MOUTH EVERY 12 HOURS FOR 10 DAYS active Not Available Not Available No t Available progester one micronize d 100 mg capsule TAKE 1 CAPSULE BY MOUTH EVERY DAY DIRECTED FOR 30 DAYS 04/30 completed Not Available Not Available Not Available Bactrim DS 800 mg-160 mg tablet take 1 tablet by oral route every 12 hours 05/23 completed Prescrib ed Elsewher e: No Locat ion: [facility] odify By: millicent huber DateTime : 05/02/20 10:00:00 AM Not Available Not Available Not Available progester one 100 mg vaginal supposito ry Insert by vaginal route. 10/05 completed Not Available Not Available Not Available Bella-D 24 Hour 180 mg-240 mg tablet,ex tended release take 1 tablet by oral route every day on an empty stomach with a glass of water 05/29 completed Prescrib ed Elsewher e: Yes Loca tion: [facility] odify By: damaris huber DateTime : 10/09/19 12 02:56:50 PM Not Available Not Available Not Available estradiol 1 mg/gram (0.1 %) transderm al gel packet APPLY 1 PACKET EVERY DAY BY TRANSDER MAL ROUTE AT BEDTIME FOR 30 DAYS 04/30 completed Not Available Not Available Not Available Bijuva 1 mg-100 mg capsule take 1 capsule by oral route every day in the evening 08/12 completed Prescrib ed Elsewher e: No Locat ion: [facility] M odify By: pb vega DateTime : 09/12/19 08:45:00 AM Not Available Not Available Not Available Slynd 4 mg (28) tablet Take 1 tablet every day by oral route for 30 days. 10/05 completed Not Available Not Available Not Available Vitals Date Recorded Body height Body mass index (BMI) Body weight Systolic And Diastolic Provider Name and Address Organization Details Last Updated DateTime 10/20/2023 167.64 cm 32.1 kg/m2 57164.88 g 112/72 mm[Hg] [facility] 10/20/2023 12:21:41 Date Recorded Body height Body mass index (BMI) Body weight Systolic And Diastolic Provider Name and Address Organization Details Last Updated DateTime 11/29/2023 167.64 cm 31.3 kg/m2 06942.92 g 102/70 mm[Hg] Shannan [facility] 11/29/2023 10:06:42 Date Recorded Body height Body mass index (BMI) Body weight Systolic And Diastolic Provider Name and Address Organization Details Last Updated DateTime 12/06/2022 167.64 cm 30.5 kg/m2 94008.96 g 113/71 mm[Hg] [facility] 12/06/2022 15:10:41 Date Recorded Body height Body mass index (BMI) Body weight Systolic And Diastolic Provider Name and Address Organization Details Last Updated DateTime 02/07/2023 167.64 cm 31 kg/m2 94519.74 g 115/74 mm[Hg] [facility] 02/07/2023 11:30:30 Date Recorded Body height Body mass index (BMI) Body weight Systolic And Diastolic Provider Name and Address Organization Details Last Updated DateTime 04/30/2024 167.64 cm 27.1 kg/m2 22710.52 g 99/68 mm[Hg] Terri Baldwin [facility] 04/30/2024 16:50:48 Social History Question Answer Notes LastModified by Organizat ion Details LastModified Time Tobacco Smoking Status Never Smoker Huang Weber marisela, [facility] 12/06/2022 14:26:33 Do You Have An Advance Directive? No Information n ot available 10/23/2020 Are You Blind Or Do You Have Difficulty Seeing? No Information n ot available 10/23/2020 What Is Your Level Of Caffeine Consumption? Moderate Information not available 08/13/2020 How Much Tobacco Do You Chew? None Information not available 10/05/2022 In The 14 Days Before Symptom Onset, Have You Had Close Contact With A Laboratory-confirm ed COVID-19 While That Case Was Ill? No [email or web address] Information n ot available 10/23/2020 In The 14 Days Before Symptom Onset, Have You Had Close Contact With A Person Who Is Under Investigation For COVID-19 While That Person Was Ill? No [email or web address] Information not available 10/23/2020 Have You Been To An Area Known To Be High Risk For COVID-19? No [email or web address] Information not available 10/23/2020 Are You Deaf Or Do You Have Serious Difficulty Hearing? No [email or web address] Information not available 10/23/2020 What Type Of Diet Are You Following? REGULAR [email or web address] Information n ot available 01/19/2022 What Is The Highest Grade Or Level Of School You Have Completed Or The Highest Degree You Have Received? [id number] [email or web address] Information not available 10/23/2020 How Many Days Of Moderate To Strenuous Exercise, Like A Brisk Walk, Did You Do In The Last 7 Days? 1 Information not available 12/06/2022 On Those Days That You Engage In Moderate To Strenuous Exercise, How Many Minutes, On Average, Do You Exercise? 30 [email or web address] Information not available 12/06/2022 Are There Any Guns Present In Your Home? Yes [email or web address] Information not available 10/23/2020 Have You Ever Been Counseled For Unhealthy Alcohol Use? No Information not available 12/06/2022 Do You Use Protection During Sex? No Information not available 10/23/2020 Do You Use Your Seat Belt Or Car Seat Routinely? Yes [email or web address] Information not available 10/23/2020 Do You Have Smoke And Carbon Monoxide Detectors In Your Home? Yes [email or web address] Information not available 10/23/2020 How Much Tobacco Do You Smoke? No Information not available 10/23/2020 Do You Use Sunscreen Routinely? Yes [email or web address] Information not available 10/23/2020 Has Tobacco Cessation Counseling Been Provided? No [email or web address] Information not available 12/06/2022 Have You Used IV Drugs? No [email or web address] Information not available 10/23/2020 Do You Have Difficulty Walking Or Climbing Stairs? No Information not available 12/06/2022 Sex: Unknown Functional Status Question Answer Note LastModified by Organizat ion Details LastModified Time Do you use any illicit or recreational drugs? No Information not available 08/13/2020 Do you or have you ever used any other forms of tobacco or nicotine? No [email or web address] Information not available 12/06/2022 What is your level of alcohol consumption? Occasional Information not available 08/13/2020 Are you able to walk independently without assistance or assistive devices? YESWOREST [email or web address] Information not available 10/23/2020 Are you able to care for yourself independently? 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 No [email or web address] Information not available 12/06/2022 What is your exercise level? Moderate Information not available 10/05/2022 Mental Status Question Answer Note LastModified by Organization D etails LastModified Time Do you feel stressed (tense, restless, nervous, or anxious, or unable to sleep at night)? [id number] Information not available 10/05/2022 Family History Relationship Description Onset Age of this Age Resolved Age Notes LastModified by Organization Details LastModified Time Father Carcinoma of prostate Not available 2020 17:51:00 Medical History Condition Response History of abnormal pap Y Gynecological History Statement/Question Response Abnormal Pap Y Date of Last Mammogram 09/08/2022 On BCP's at Conception? N Y STIs/STDs N HPV Vaccine N Colposcopy 07/25/2014 Current Control Method Menopause Age at First Child 32 If Post Menopausal, Age at Menopause 50 Date of Last Colonoscopy 09/08/2023 Sexually Active? Y Menses Monthly N Date of Last Pap Smear 02/07/2023 Sexual Problems? N LMP Unknown Y Obstetrics History GPAL:G 4 P 2 0 2 2 Type Value Full Term 2 Spontaneous 2 Living 2 Total 4 Past Encounters Encounter ID Performer Location Encounter Start Date Encounter Closed Date Diagnosis/Indication Diagnosis SNOMED-CT Code Diagnosis ICD10 Code Diagnosis IMO Codes Diagnosis Note [id number] Carlos Whitlock MD [facility] [address] [address] 08/13/2020 17:55:11 08/14/2020 15:31:43 Postmenopausal bleeding 02653514 N95.0 this patient is 50-year-ol d female presents for episode of postmenopa usal bleeding. Patient has not had a menstrual cycle in in more than a year. She does report having a premenstru al symptoms prior to this episode of bleeding. She has some marked breast tenderness . We will bleeding persisted and is heavy to some degree. I spent more than 30 minutes with the patient and her . We talked about various aspect of her care. We talked about the evaluation . We talked about hormones, menopause, the menstrual cycle. She declined exam today. We agreed to perform endometria l biopsy and pelvic ultrasound . She will return for discussion of the results and treatment considerat ions. [id number] MD Kyle Dorman [address] [address] 08/19/2020 09:55:54 08/19/2020 11:25:22 Screening procedure 39406552 Z13.9 Postmenopa usal bleeding 61113940 N95.0 this patient is a 50-year-ol d female with postmenopa usal bleeding. Endometria l biopsy was performed today. We discussed her ultrasound results which are essentiall y normal for her status. Patient reports fatigue today. We talked about possible etiologies of fatigue. Talked about a had initial evaluation for that. She is undecided about what she wants to do going forward. She will follow-up for annual exam in about a month. [id number] Carlos Whitlock MD [facility] [address] [address] 08/19/2020 09:56:42 08/19/2020 10:47:55 Postmenopausal bleeding 85634325 N95.0 this patient is 50-year-ol d female presents for episode of postmenopa usal bleeding. Patient has not had a menstrual cycle in in more than a year. She does report having a premenstru al symptoms prior to this episode of bleeding. She has some marked breast tenderness . We will bleeding persisted and is heavy to some degree. I spent more than 30 minutes with the patient and her . We talked about various aspect of her care. We talked about the evaluation . We talked about hormones, menopause, the menstrual cycle. She declined exam today. We agreed to perform endometria l biopsy and pelvic ultrasound . She will return for discussion of the results and treatment considerat ions. [id number] Carlos Whitlock MD [facility] [address] [address] 10/10/2020 16:21:36 10/12/2020 16:24:43 Postmenopausal bleeding 69072440 N95.0 This patient is a 50-year-ol d female with postmenopa usal bleeding again. This is repetitive episode of bleeding. She was evaluated previously with endometria l biopsy and pelvic ultrasound . She had a slightly thickened endometriu m and some polypoid tissue on endometria l biopsy. She had an episode of bleeding recently. It lasted 5 days. She is definitely postmenopa usal. She had an FSH of over 150. that was more than a year ago. We discussed some alternativ es. I feel she should have a hysterosco py D&C with complete evaluation of the endometriu m both visually and with a comprehens chrissy clearing of the endometria l surfaces. We could then treat with progestero ne afterward. I feel with some polypoid tissue present hormonal control may not be achieved. We had a lengthy discussion . We reviewed her previous lab results, biopsy results, ultrasound results. We reviewed some of the ultrasound images together. We ultimately agreed to perform hysterosco py D&C. [id number] [facility] [address] [address] 01/19/2022 16:30:02 01/21/2022 00:34:21 Gynecologic examination [id number] Z01.419 Suggested Calcium with Vitamin D 1200-1500m g daily. Patient advised to get an annual flu shot in the fall and she could obtain at [facility] or [facility] care clinic. Also to obtain TDap vaccinatio n if you have not had one in the last 10 years. Recommend yearly mammograms . Encouraged monthly self breast exams. Encourage safe sexual practices, to use condoms and limit partners if not already in a monogamous relationsh ip. Engage in daily exercise of low impact aerobic exercise 45-60 minutes 4-5 times weekly. Avoid tobacco and illicit drugs as well as using moderation with alcohol intake less than 1-2 8 oz beverages daily. This lifestyle behavior pattern will lead to less health conditions and longer life span. If BMI greater than 25 weight watchers or dietary consult advised. All questions have been answered. Patient appears to understand informatio n, but if you have any questions please call or respond to this email. Pap/hpv sentSTD Screen declinedGe netic Screen discussedC olon Screen discussed with PCPDexa Screen naRphelps healthine Labs UTD PCPMammo ordered Menopausal symptom 54853 002 N95.1 Need clearance from her Cardiologi st for use of estrogen products.S o far she denies they have found anything that would cause DVT/PE but want to ensure nothing is missed. RTO x 4wks med checkConsi bernard addition of Prozac 10mg to start for anxiety/te arfulness Counseled on medication R/B's, Most common side effects, & use. All questions were answered to patient satisfacti on. [id number] ROSE Eid [facility] [address] [address] 10/05/2022 11:46:30 10/05/2022 15:28:54 Postmenopausal bleeding 55558286 N95.0 Today we reviewed a detailed hx and discussed postmenopa usal bleedingWe discussed postmenopa usal bleeding in relation to hx of endometria l polyps, never received hyst d&c. Discussed postmenopa usal bleeding in relation to her recent HRT pellets and that she has not been taking the oral progestero ne along with the estrogen pellets she has been receiving. Discussed importance of taking progestero ne if she is receiving estrogen pellet therapy, discussed risk of endometria l cancers if taking estrogen alone. We agreed to update TVUSDeclin ed blood work, she will send copies of recent blood work doneSTI [facility] f[facility]u with MD for u/s f/u Time spent in visit is a total of 30 mins with at least 50% of visit consisting of counseling and review of plan of care. [id number] Astrid Castellanos MD [facility] [address],[place] [address] 10/07/2022 09:27:01 10/07/2022 10:18:16 Postmenopausal bleeding 49726588 N95.0 [id number] Astrid Castellanos MD [facility] [address],[place] [address] 10/27/2022 15:56:11 10/29/2022 14:34:46 Postmenopausal bleeding 38355777 N95.0 Preoperative state 37493 002 Z78.9 Menopausal symptom 75556 002 N95.1 [id number] Astrid Castellanos MD [facility] [address],[place] [address] 12/06/2022 14:26:25 12/08/2022 10:54:16 Postmenopausal bleeding 84069830 N95.0 Body mass index 30+ - obesity 111433520 Z68.30 Hormone re placement therapy 762831987 Z79.890 [id number] Astrid Castellanos MD [facility] [address],[place] [address] 02/07/2023 11:24:51 02/07/2023 12:58:33 Gynecologic examination 01980349 Z01.419 Hormone re placement therapy 652353740 Z79.890 History of loop electrosurgical excision procedure [id number] 9102 Z98.890 approx 2018 [id number] [facility] [address] [address] 10/20/2023 12:05:23 10/20/2023 14:07:29 Pain in pelvis 08243855 R10.2 CT scan is being ordered by her PCP who will continue this evaluation ; I do 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 Understand ing verbalized . Menopausal symptom 04469 002 N95.1 Wants to restart HRT but would prefer to try the patch.Feel s the pills cause too much of an increase in her appetite. We discussed Menopausal Hormone therapy (MHT) for women with intact uterus with the goals of reliving vaso-motor sx's using estrogen/p rogestin therapy (EPT) using lowest doses for shortest duration in women 40-59yo. Contraindi cations include: Hx of DVT or thrombolic events, High cholestero l, Hx of breast cancer, known CHD, active liver disease, unexplaine d vag bleeding, high risk endometria l cancer, TIA. Side effects can include but are not limited to: Irregular vag bleeding,, breast tenderness , nausea, weight changes, libido changes, nausea. Adverse Rxn: Elevated BP migraine w/ visual changes, breast cancer dx, MO/stroke, DVT/PE, Endometria l cancer. Please contact office with any new or worsening side effects or adverse reactions. Or if a medical emergency please go to nearest ED/[facility] care for further evaluation . Time spent in visit is a total of 22 mins with at least 50% of visit consisting of counseling and review of plan of care. [id number] [facility] [address] [address] 11/29/2023 09:57:02 11/29/2023 10:46:55 Menopausal symptom 61038272 N95.1 Today we discussed her use of generic combi-patc h which has not adhered well.The name brand stayed on well; but it is very expensive so not affordable .We decided to trial nightly topical applicatio n of divigel 1mg and take oral prometrium at HS; she will let us know if wants to pursue this option via portal.If so we will send in RF and f/u x 6mos will apply. Counseled on medication R/B's, Most common side effects, & use. All questions were answered to patient satisfacti on. Time spent in visit is a total of 22 mins with at least 50% of visit consisting of counseling and review of plan of care. [id number] BORIS LERMA MD [facility] [address] [address] 04/30/2024 16:42:00 04/30/2024 17:17:51 Venereal disease screening 634338170 Z11.3 - urine GC/CT/tric h sent- blood tests ordered as below Pelvic con gestion syndrome 06750010 N94.89 - per patient confirmed with imaging- pain improved with weight loss- discussed symptomati c improvemen t, if worsening, would recommend IR consult for possible coiling of varicose veins- patient to call if pain worsens Health Concerns Section Related Observation LastModified by Organization Detai ls LastModified Time None Recorded Concern Status LastModified by Organization Details LastModified Time None Recorded Advance Directives Directive N: Payers Insurance Date Sequence Insurance Name Policy Number Policy Perez Covered Member ID Perez Member ID Guarantor Name 04/30/2024 1 [place] [facility] [facility] Winter [id number] Jessica winter04/30/2024 1 [facility] [id number] Jessica Winter [id number] Jessica winter04/30/2024 1 [facility] [id number] [facility] Winter [id number] [place] Winter Notes Date Note Type Note Provider Name and Address Organization Details Recorded Time 3 text/html PMB in september, showed 7mm endometrium and a possible lower segment polyp and one posterior small fibroid. She is here for EMB. She has decided if everything is ok she wants to get back on HRT, but not pellets. She feels badly off hormones. She is also frustrated with weight gain. [employer] was January 2022 Astrid Castellanos MD [address], [place], [address], [facility] 12/07/2022 22:08:11 3 text/html Patient is a 52yo who presents for an annual exam. ON HRT now since december, doing ok. Helping her sx a lot, but increased appetite and has gained weight back. Did not sschedule weight loss appt with Dr. Whitlock yet. menopause 49. last pap-01/2022. LEEP about 5 years ago. all normal since. mammo-07/2022 colonoscopy-none. has bad insurance currently, plans to do when gets new insurance soon dexa-none sexually active-y seatbelts-y exercise-y depression-denies domestic violence-denies tobacco-n concerns-n Astrid Castellanos MD [address], [place], [address], [facility] 02/07/2023 12:57:11 4 text/html Pelvic Pain/PressureReported by PatientHPIFor location, patient reportsright. For quality, patient reportspressure,dull, andaching. For severity, patient reportsno pain (no pain today. happens randomly during activities or just sitting.). For duration, patient reportspresent for 1-2 months. For onset/timing, patient reportsintermittent episodes lasting: (1-2mins). For alleviating factors, patient reportsnone. For associated symptoms, patient reportsno abdominal pain,no back pain,no chills,no constipation,no diarrhea,no dribbling,no pain with urination,normal emptying of bladder,no blood in semen,no blood in the urine,no hesitancy,no impotence,normal libido,no nausea,no vomiting,no nocturia,no urine odor,no straining,no incontinence,no fever,no feelings of urgency, andno urge incontinence.ROS as noted in the HPI Completed imaging TVUS at [facility], Endo lining stable 7mm which is the same as it was in 2022; no AUB Gabby Ram, OKSANA- [address], [place], [address], [facility] 10/20/2023 14:05:48 4 text/html ROS as noted in the HPI Here today for medication check of generic combi patch. She does like this patch and it is achieving our goals of tackling vasomotor sx's.However, the only issue is that it falls off easily despite good cleaning and swabbing with alcohol swab.She cleans and has varied the sites she places this patch based on instructions; but it still falls off.She has resorted to covering it with a bandaide to keep it on. ROSE Mcneil- [address], [place], [address], [facility] 11/29/2023 10:45:31 4 text/html Patient presents for STD testing. Concerned for possible exposure after partner's infidelity. Asymptomatic. No known exposures. Also reports hx of right pelvic pain, evaluated by imaging and told she has pelvic congestion syndrome. Pain improved since losing weight with semaglutide. BORIS LERMA MD [address], [place], [address], [facility] 04/30/2024 17:13:14 OBGyn Episode Ob Episode Information Episode Created Date Number of Fetuses Patient Bloodtype Patient rh Status Prepregnancy Weight lbs Domestic Partner Domestic Partner Phone Father Name Plastic Surgery Manager Status 08/13/19 21 1 CLOSED Fetus Data First Name Last Name Admitted to NICU Weight (g) Sex Living Outcome Pediatric Complications Fetus ID Race Codes Race Delivery Type , Spontane ous 7513 Samir Calculation Initial Samir Date Initial Exam Date Initial Exam Provider Initial Ultrasound Date Last Menstrual Period Date Ultra Sound Weeks Gestation 0 Eighteen To Twenty Week Samir Update Ultra Sound Date Fundal Height At Umbil Quickening Date Ultra Sound Latest Weeks Gestation Final Samir Confirmed By Final Samir Confirmed Date Final Samir Date Ultra Sound Latest Days Gestation 0 0 Menstrual History Last Menstrual Date Menses Monthly On Bcp Conception Prior Menses Frequency Hcg Plus Date Menarche Onset Age Delivery Information Delivery Date Delivery Type Labor Anesthesia Weeks Gestation Incision Type Labor Labor Length Hrs Delivered By Post Complications Tubal Sterilization Discharge Date Comments 2 chemical Discharge Information Feeding Method Contraceptive Method Maternal HG B and HCT Levels Ob Episode Information Episode Created Date Number of Fetuses Patient Bloodtype Patient rh Status Prepregnancy Weight lbs Domestic Partner Domestic Partner Phone Father Name Plastic Surgery Manager Status 08/13/19 21 1 CLOSED Fetus Data First Name Last Name Admitted to NICU Weight (g) Sex Living Outcome Pediatric Complications Fetus ID Race Codes Race Delivery Type 7514 Primary Samir Calculation Initial Samir Date Initial Exam Date Initial Exam Provider Initial Ultrasound Date Last Menstrual Period Date Ultra Sound Weeks Gestation 0 Eighteen To Twenty Week Samir Update Ultra Sound Date Fundal Height At Umbil Quickening Date Ultra Sound Latest Weeks Gestation Final Samir Confirmed By Final Samir Confirmed Date Final Samir Date Ultra Sound Latest Days Gestation 0 0 Menstrual History Last Menstrual Date Menses Monthly On Bcp Conception Prior Menses Frequency Hcg Plus Date Menarche Onset Age Delivery Information Delivery Date Delivery Type Labor Anesthesia Weeks Gestation Incision Type Labor Labor Length Hrs Delivered By Post Complications Tubal Sterilization Discharge Date Comments 4 LST, Breech Discharge Information Feeding Method Contraceptive Method Maternal HG B and HCT Levels Ob Episode Information Episode Created Date Number of Fetuses Patient Bloodtype Patient rh Status Prepregnancy Weight lbs Domestic Partner Domestic Partner Phone Father Name Plastic Surgery Manager Status 08/13/19 21 1 CLOSED Fetus Data First Name Last Name Admitted to NICU Weight (g) Sex Living Outcome Pediatric Complications Fetus ID Race Codes Race Delivery Type 7511 Vaginal Delivery Samir Calculation Initial Samir Date Initial Exam Date Initial Exam Provider Initial Ultrasound Date Last Menstrual Period Date Ultra Sound Weeks Gestation 0 Eighteen To Twenty Week Samir Update Ultra Sound Date Fundal Height At Umbil Quickening Date Ultra Sound Latest Weeks Gestation Final Samir Confirmed By Final Samir Confirmed Date Final Samir Date Ultra Sound Latest Days Gestation 0 0 Menstrual History Last Menstrual Date Menses Monthly On Bcp Conception Prior Menses Frequency Hcg Plus Date Menarche Onset Age Delivery Information Delivery Date Delivery Type Labor Anesthesia Weeks Gestation Incision Type Labor Labor Length Hrs Delivered By Post Complications Tubal Sterilization Discharge Date Comments 6 vacuum/f o rceps due to bradycard ia Discharge Information Feeding Method Contraceptive Method Maternal HG B and HCT Levels Ob Episode Information Episode Created Date Number of Fetuses Patient Bloodtype Patient rh Status Prepregnancy Weight lbs Domestic Partner Domestic Partner Phone Father Name Plastic Surgery Manager Status 08/13/19 21 1 CLOSED Fetus Data First Name Last Name Admitted to NICU Weight (g) Sex Living Outcome Pediatric Complications Fetus ID Race Codes Race Delivery Type , Spontane ous [id number] Samir Calculation Initial Smair Date Initial Exam Date Initial Exam Provider Initial Ultrasound Date Last Menstrual Period Date Ultra Sound Weeks Gestation 0 Eighteen To Twenty Week Asmir Update Ultra Sound Date Fundal Height At Umbil Quickening Date Ultra Sound Latest Weeks Gestation Final Samir Confirmed By Final Samir Confirmed Date Final Samir Date Ultra Sound Latest Days Gestation 0 0 Menstrual History Last Menstrual Date Menses Monthly On Bcp Conception Prior Menses Frequency Hcg Plus Date Menarche Onset Age Delivery Information Delivery Date Delivery Type Labor Anesthesia Weeks Gestation Incision Type Labor Labor Length Hrs Delivered By Post Complications Tubal Sterilization Discharge Date Comments 2 Discharge Information Feeding Method Contraceptive Method Maternal HG B and HCT Levels
--- OUTSIDE RECORDS SUMMARY | 2025-05-05 10:54 | XMS_ITS | Data Portability ---
Author Organization [facility], Main Office Address [address] [place] [address] Assessment No assessment recorded. Plan of Treatment Reminders Order Date Submit Date Provider Last Modified By Organization Details Last Modified Time Details Appointments None recorded. Lab urinalysis complete, reflex culture 2022 023 [facility] (Lab), [address] [place] [address], [address], 3 23:18:52 CBC w/ auto diff 2022 023 [facility] (Lab), [address] [place] [address], [address], 3 23:18:51 CMP, serum or plasma 2022 023 [facility] (Lab), [address] [place] [address], [address], 3 23:18:48 TSH + free T4, serum [address] (Lab), [address] [place] [address], [address], 3 15:10:24 vitamin B12 + folate, serum or blood 2022 023 [facility] (Lab), [address] [place] [address], [address], 3 23:18:54 lipid panel, serum 2022 023 [facility] (Lab), [address] [place] [address], [address], 3 23:18:47 HbA1c (hemoglobin A1c), blood 2022 023 [facility] (Lab), [address] [facility] [address], [place], [address], 3 23:18:50 Referral None recorded. Procedures colonoscopy screening (PROC) 2022 023 [place] [address] Luis Enrique Pitts MD, [address] [facility] [address], [place], [address], 4 09:04:59 Surgeries None recorded. Imaging CT, abdomen + pelvis, w/ contrast - no auth required [address], [address] [facility] [address], [place], [address], 4 09:04:53 Medication Orders None recorded. Patient TargetsNo targets recorded. Patient InstructionsNo instructions recorded. Reason for Referral None Reported. Results Created Date Observation Date Name Description Value Unit Range Abnormal Flag Note LastModifiedBy Organization Detail LastModifiedTime 06/02/2006/03/2023 LIPID PANEL , STAND ERIC cholesterol, total 152 mg/dL <200 normal Not Available [facility] [address] [address] [place], [address], 06/03/2023 23:18:47 06/02/20 23 06/03/2023 LIPID PANEL , STAND ERIC HDL cholesterol 51 mg/dL > or = 50 normal Not Available [facility] [address] [place], [address], 06/03/2023 23:18:47 06/02/20 23 06/03/2023 LIPID PANEL , STAND ERIC triglyceride s 69 mg/dL <150 normal Not Available [facility] [address] [place] [address] [place], [address], 06/03/2023 23:18:47 06/02/20 23 06/03/2023 LIPID PANEL , STAND ERIC LDL-choleste rol 85 mg/dL _(camelia c) normal Refer ence range : <100 Josh able range <100 mg/dL for prima ry preve ntion ; <70 mg/dL for patie nts with CHD or diabe tic patie nts with > or = 2 CHD risk facto rs. LDL-C is now calcu lated using the Janette n-Hop kins calcu keith n, which is a valid ated novel metho d provi jessi finesse r accur acy than the Fried akira equat ion in the estim ation of LDL-C . Janette jacinto SS et al. LUAN. 2013; 310(1 9): 2061- 2068 (http ://ed ucati on.Qu Evisors. com/f aq/FA Q164) Not Available [facility] [place] [address] [place], [address], 06/03/2023 23:18:47 06/02/20 23 06/03/2023 LIPID PANEL , STAND ERIC chol/HDLC ratio 3.0 (calc ) <5.0 normal Not Available [facility] [address] [address] [address], [place], [address], 06/03/2023 23:18:47 06/02/20 23 06/03/2023 LIPID PANEL , STAND ERIC non HDL cholesterol 101 mg/dL _(camelia c) <130 normal For patie nts with diabe brooke plus 1 major ASCVD risk facto r, treat ing to a non-H DL-C goal of <100 mg/dL (LDL- C of <70 mg/dL ) is consi dered a thera peuti c optio n. Not Available [facility] [address] [address] [address], [place], [address], 06/03/2023 23:18:47 06/02/20 23 06/03/2023 COMPR EHENS ESTEPHANIA METAB OLIC PANEL glucose 94 mg/dL 65-99 normal Fasti ng refer ence inter liam Not Available [facility] [address] [address] [address], [place], [address], 06/03/2023 23:18:48 06/02/20 23 06/03/2023 COMPR EHENS ESTEPHANIA METAB OLIC PANEL urea nitrogen (BUN) 17 mg/dL 7-25 normal Not Available [address], [address], 06/03/2023 23:18:48 06/02/20 23 06/03/2023 COMPR EHENS ESTEPHANIA METAB OLIC PANEL creatinine 0.91 mg/dL 0.50-1 .03 normal Not Available [address], [address], 06/03/2023 23:18:48 06/02/20 23 06/03/2023 COMPR EHENS ESTEPHANIA METAB OLIC PANEL eGFR 77 mL/mi n/1.7 3m2 > or = 60 normal Not Available [address], [address], 06/03/2023 23:18:48 06/02/20 23 06/03/2023 COMPR EHENS ESTEPHANIA METAB OLIC PANEL BUN/creatini ne ratio SEE NOTE: (calc ) 6-22 Not Repor kirill: BUN and Creat inine are withi n refer ence range . Not Available [address], [address], 06/03/2023 23:18:48 06/02/20 23 06/03/2023 COMPR EHENS ESTEPHANIA METAB OLIC PANEL sodium 139 mmol/ L 135-14 6 normal Not Available [address], [address], 06/03/2023 23:18:48 06/02/20 23 06/03/2023 COMPR EHENS ESTEPHANIA METAB OLIC PANEL potassium 3.8 mmol/ L 3.5-5. 3 normal Not Available [address], [address], 06/03/2023 23:18:48 06/02/20 23 06/03/2023 COMPR EHENS ESTEPHANIA METAB OLIC PANEL chloride 104 mmol/ L 98-110 normal Not Available [address], [address], 06/03/2023 23:18:48 06/02/20 23 06/03/2023 COMPR EHENS ESTEPHANIA METAB OLIC PANEL carbon dioxide 29 mmol/ L 20-32 normal Not Available [address], [address], 06/03/2023 23:18:48 06/02/20 23 06/03/2023 COMPR EHENS ESTEPHANIA METAB OLIC PANEL calcium 9.5 mg/dL 8.6-10 .4 normal Not Available [address], [address], 06/03/2023 23:18:48 06/02/20 23 06/03/2023 COMPR EHENS ESTEPHANIA METAB OLIC PANEL protein, total 6.6 g/dL 6.1-8. 1 normal Not Available [address], [address], 06/03/2023 23:18:48 06/02/20 23 06/03/2023 COMPR EHENS ESTEPHANIA METAB OLIC PANEL albumin 4.1 g/dL 3.6-5. 1 normal Not Available [address], [address], 06/03/2023 23:18:48 06/02/20 23 06/03/2023 COMPR EHENS ESTEPHANIA METAB OLIC PANEL globulin 2.5 g/dL_ (calc ) 1.9-3. 7 normal Not Available [address], [address], 06/03/2023 23:18:48 06/02/20 23 06/03/2023 COMPR EHENS ESTEPHANIA METAB OLIC PANEL albumin/glob ulin ratio 1.6 (calc ) 1.0-2. 5 normal Not Available [address], [place], [address], 06/03/2023 23:18:48 06/02/20 23 06/03/2023 COMPR EHENS ESTEPHANIA METAB OLIC PANEL bilirubin, total 0.6 mg/dL 0.2-1. 2 normal Not Available [address] [address] [place], [address], 06/03/2023 23:18:48 06/02/20 23 06/03/2023 COMPR EHENS ESTEPHANIA METAB OLIC PANEL alkaline phosphatase 58 U/L 37-153 normal Not Available [address] [address] [place], [address], 06/03/2023 23:18:48 06/02/20 23 06/03/2023 COMPR EHENS ESTEPHANIA METAB OLIC PANEL AST 13 U/L 10-35 normal Not Available [address] [address] [place], [address], 06/03/2023 23:18:48 06/02/20 23 06/03/2023 COMPR EHENS ESTEPHANIA METAB OLIC PANEL ALT 15 U/L 6-29 normal Not Available [address] [address] [place], [address], 06/03/2023 23:18:48 06/02/20 23 06/03/2023 HEMOG LOBIN A1C hemoglobin A1C 5.7 %_of_ total _HGB <5.7 high For someo ne witho ut known diabe brooke, a hemog lobin A1c value betwe en 5.7% and 6.4% is consi stent with predi abete s and shoul d be confi rmed with a follo w-up test. For someo ne with known diabe brooke, a value <7% indic ates that their diabe brooke is well contr olled . A1c targe ts shoul d be indiv idual ized based on durat ion of diabe brooke, age, comor bid condi tions , and other consi derat ions. This assay resul t is consi stent with an incre ased risk of diabe brooke. Curre ntly, no conse nsus exist s piedad bowen use of hemog lobin A1c for diagn osis of diabe brooke for child talha. Not Available [address], [address], 06/03/2023 23:18:50 06/02/20 23 06/03/2023 TSH W/REF JOE TO FT4 TSH w/reflex to FT4 4.20 mIU/L normal Refer ence Range > or = 20 Years 0.40- 4.50 Pregn samra Range s First trime ster 0.26- 2.66 Secon d trime ster 0.55- 2.73 Third trime ster 0.43- 2.91 Not Available [address], [address], 06/03/2023 23:18:51 06/02/20 23 06/03/2023 CBC (INCL UDES DIFF/ PLT) white blood cell count 7.4 thous and/u L 3.8-10 .8 normal Not Available [address], [address], 06/03/2023 23:18:51 06/02/20 23 06/03/2023 CBC (INCL UDES DIFF/ PLT) red blood cell count 4.43 jeff on/uL 3.80-5 .10 normal Not Available [address], [address], 06/03/2023 23:18:51 06/02/20 23 06/03/2023 CBC (INCL UDES DIFF/ PLT) hemoglobin 13.6 g/dL 11.7-1 5.5 normal Not Available [address], [address], 06/03/2023 23:18:51 06/02/20 23 06/03/2023 CBC (INCL UDES DIFF/ PLT) hematocrit 40.2 % 35.0-4 5.0 normal Not Available [address], [address], 06/03/2023 23:18:51 06/02/20 23 06/03/2023 CBC (INCL UDES DIFF/ PLT) MCV 90.7 fL 80.0-1 00.0 normal Not Available [address], [address], 06/03/2023 23:18:51 06/02/20 23 06/03/2023 CBC (INCL UDES DIFF/ PLT) MCH 30.7 pg 27.0-3 3.0 normal Not Available [address], [address], 06/03/2023 23:18:51 06/02/20 23 06/03/2023 CBC (INCL UDES DIFF/ PLT) MCHC 33.8 g/dL 32.0-3 6.0 normal Not Available [address], [address], 06/03/2023 23:18:51 06/02/20 23 06/03/2023 CBC (INCL UDES DIFF/ PLT) RDW 12.0 % 11.0-1 5.0 normal Not Available [address], [address], 06/03/2023 23:18:51 06/02/20 23 06/03/2023 CBC (INCL UDES DIFF/ PLT) platelet count 238 thous and/u L 140-40 0 normal Not Available [address], [address], 06/03/2023 23:18:51 06/02/20 23 06/03/2023 CBC (INCL UDES DIFF/ PLT) MPV 11.0 fL 7.5-12 .5 normal Not Available [address], [address], 06/03/2023 23:18:51 06/02/20 23 06/03/2023 CBC (INCL UDES DIFF/ PLT) absolute neutrophils 4137 cells /uL 1500-7 800 normal Not Available [address], [address], 06/03/2023 23:18:51 06/02/20 23 06/03/2023 CBC (INCL UDES DIFF/ PLT) absolute lymphocytes 2620 cells /uL 850-39 00 normal Not Available [address], [address], 06/03/2023 23:18:51 06/02/20 23 06/03/2023 CBC (INCL UDES DIFF/ PLT) absolute monocytes 451 cells /uL 200-95 0 normal Not Available [address], [address], 06/03/2023 23:18:51 06/02/20 23 06/03/2023 CBC (INCL UDES DIFF/ PLT) absolute eosinophils 141 cells /uL 15-500 normal Not Available [address], [address], 06/03/2023 23:18:51 06/02/20 23 06/03/2023 CBC (INCL UDES DIFF/ PLT) absolute basophils 52 cells /uL 0-200 normal Not Available [address], [address], 06/03/2023 23:18:51 06/02/20 23 06/03/2023 CBC (INCL UDES DIFF/ PLT) neutrophils 55.9 % normal Not Available [address], [address], 06/03/2023 23:18:51 06/02/20 23 06/03/2023 CBC (INCL UDES DIFF/ PLT) lymphocytes 35.4 % normal Not Available [address], [address], 06/03/2023 23:18:51 06/02/20 23 06/03/2023 CBC (INCL UDES DIFF/ PLT) monocytes 6.1 % normal Not Available [address], [address], 06/03/2023 23:18:51 06/02/20 23 06/03/2023 CBC (INCL UDES DIFF/ PLT) eosinophils 1.9 % normal Not Available [address], [address], 06/03/2023 23:18:51 06/02/20 23 06/03/2023 CBC (INCL UDES DIFF/ PLT) basophils 0.7 % normal Not Available [address], [address], 06/03/2023 23:18:51 06/02/20 23 06/03/2023 URINA LYSIS , COMPL ETE W/REF JOE TO CULTU RE color YELLOW yellow normal Not Available [address], [address], 06/03/2023 23:18:52 06/02/20 23 06/03/2023 URINA LYSIS , COMPL ETE W/REF JOE TO CULTU RE appearance CLOUDY clear abnormal Not Available [address], [address], 06/03/2023 23:18:52 06/02/20 23 06/03/2023 URINA LYSIS , COMPL ETE W/REF JOE TO CULTU RE specific gravity 1.011 1.001- 1.035 normal Not Available [address], [address], 06/03/2023 23:18:52 06/02/20 23 06/03/2023 URINA LYSIS , COMPL ETE W/REF JOE TO CULTU RE pH 5.5 5.0-8. 0 normal Not Available [address] [address] [place], [address], 06/03/2023 23:18:52 06/02/20 23 06/03/2023 URINA LYSIS , COMPL ETE W/REF JOE TO CULTU RE glucose NEGATI VE negati ve normal Not Available [address] [address] [place], [address], 06/03/2023 23:18:52 06/02/20 23 06/03/2023 URINA LYSIS , COMPL ETE W/REF JOE TO CULTU RE bilirubin NEGATI VE negati ve normal Not Available [address] [address] [place], [address], 06/03/2023 23:18:52 06/02/20 23 06/03/2023 URINA LYSIS , COMPL ETE W/REF JOE TO CULTU RE ketones NEGATI VE negati ve normal Not Available [address] [address] [place], [address], 06/03/2023 23:18:52 06/02/20 23 06/03/2023 URINA LYSIS , COMPL ETE W/REF JOE TO CULTU RE occult blood NEGATI VE negati ve normal Not Available [address] [address] [place], [address], 06/03/2023 23:18:52 06/02/20 23 06/03/2023 URINA LYSIS , COMPL ETE W/REF JOE TO CULTU RE protein NEGATI VE negati ve normal Not Available [facility] [address] [address] [place], [address], 06/03/2023 23:18:52 06/02/20 23 06/03/2023 URINA LYSIS , COMPL ETE W/REF JOE TO CULTU RE nitrite NEGATI VE negati ve normal Not Available [address] [address] [place], [address], 06/03/2023 23:18:52 06/02/20 23 06/03/2023 URINA LYSIS , COMPL ETE W/REF JOE TO CULTU RE leukocyte esterase TRACE negati ve abnormal Not Available [address], [address], 06/03/2023 23:18:52 06/02/20 23 06/03/2023 URINA LYSIS , COMPL ETE W/REF JOE TO CULTU RE WBC 0-5 /hpf < or = 5 normal Not Available [address], [address], 06/03/2023 23:18:52 06/02/20 23 06/03/2023 URINA LYSIS , COMPL ETE W/REF JOE TO CULTU RE RBC 0-2 /hpf < or = 2 normal Not Available [address], [address], 06/03/2023 23:18:52 06/02/20 23 06/03/2023 URINA LYSIS , COMPL ETE W/REF JOE TO CULTU RE squamous epithelial cells 10-20 /hpf < or = 5 abnormal Not Available [address], [address], 06/03/2023 23:18:52 06/02/20 23 06/03/2023 URINA LYSIS , COMPL ETE W/REF JOE TO CULTU RE bacteria FEW /hpf none seen abnormal Not Available [address], [address], 06/03/2023 23:18:52 06/02/20 23 06/03/2023 URINA LYSIS , COMPL ETE W/REF JOE TO CULTU RE calcium oxalate crystals FEW /hpf none or few normal Not Available [address], [address], 06/03/2023 23:18:52 06/02/20 23 06/03/2023 URINA LYSIS , COMPL ETE W/REF JOE TO CULTU RE hyaline cast NONE SEEN /lpf none seen normal Not Available [address] [address] [place], [address], 06/03/2023 23:18:52 06/02/20 23 06/03/2023 URINA LYSIS , COMPL ETE W/REF JOE TO CULTU RE note This urine was bridger zed for the prese nce of WBC, RBC, bacte rodrigo, casts , and other forme d eleme nts. Only those eleme nts seen were repor kirill. Not Available [address] [address] [place], [address], 06/03/2023 23:18:52 06/02/20 23 06/03/2023 REFLE XIVE URINE CULTU RE reflexive urine culture CULTU RE INDIC ATED - RESUL TS TO FOLLO W Not Available [address] [address] [place], [address], 06/03/2023 23:18:53 06/02/20 23 06/03/2023 VITAM IN B12/F OLATE , SERUM PANEL vitamin B12 489 pg/mL 200-11 00 normal Not Available [address] [place], [address], 06/03/2023 23:18:54 06/02/20 23 06/03/2023 VITAM IN B12/F OLATE , SERUM PANEL folate, serum 10.5 NG/mL normal Refer ence Range Low: <3.4 Borde rline : 3.4-5 .4 Yumiko l: >5.4 Not Available [address] [address] [place], [address], 06/03/2023 23:18:54 06/02/20 23 06/03/2023 CULTU RE, URINE , ROUTI NE culture, urine, routine CULTU RE, URINE , ROUTI NE Micro Numbe r: [id number] Test Statu s: Final Speci men Sourc e: Urine Speci men Quali ty: Adequ ate Resul t: Mixed genit al feliz isola kirill. These super ficia l bacte rodrigo are not indic ative of a urina ry tract infec tion. No furth er organ ism ident ifica tion is warra nted on this speci men. If clini dom indic ated, recol lect clean -catc h, mid-s tream urine and trans navya immed iatel y to Urine Cultu re Trans port Tube. Not Available [facility] [address] [place], [address], 06/03/2023 23:18:55 12/18/19 22 11/17/2021 stres s echoc ardio gram No observ ation record ed. [id number] Not Available 09/15/2022 18:03:03 11/19/19 23 09/08/2022 MAMMO , diagn ostic , digit al, unila teral No observ ation record ed. [email or web address], [place], [address], 11/22/2022 15:21:02 12/01/19 24 11/30/2023 MAMMO , scree nona, bilat eral No observ ation record ed. [email or web address] [facility] [address] [place], [address], 01/10/2024 10:55:07 Result Notes None recorded. Problems Name Problem SNOMED Code Status Onset Date Resolution Date Notes Provider Name and Address Organization Details Recorded Time Vitamin D deficiency 85165624 Active Not Available [facility] 3 18:02:00 Temporomandi bular joint disorder 42606521 Active Not Available [facility] 3 18:02:00 Fatigue 75564186 Active Not Available [facility] 3 18:02:00 Weight gain 5014777 Active Not Available [facility] 3 18:02:00 Disorder of skin 81304906 Active 2021 benign mole and nevus Not Available [facility] 3 18:02:00 Mixed anxiety and depressive disorder 866745397 Active 2021 MISTY Garcia null, MD - S [facility] 3 11:47:44 Otitis media 81523729 Active 2021 Not Available [facility] 3 18:02:00 Gastroesopha geal reflux disease without esophagitis 278589466 Active 2021 MISTY Garcia null, MD - S [facility] 3 11:47:41 Pericarditis 1348079 Active 2021 Not Available [facility] 3 18:02:00 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 Procedures Surgical History Date Name Laterality Status Provider Name and Address Organization Details Recorded Time section completed Not Available [facility] 09/15/2022 18:01:20 loop electrosurgical excision procedure completed Not Available [facility] 09/16/19 18:01:20 Imaging Results None recorded. Procedure Notes None recorded. Medical Equipment None Reported. Allergies Allergen ID Allergen Name Allergen Category Reaction Reaction Severity Criticality Documentation Date Start Date Code Code System Note Provider Name and Address Organization Details Recorded Time 29756 Product containin g penicilli n (product) medicatio n Not available Not available Not available 09/15/2022 81796 8001 SNOMED told at a young age. Not Available [facility] 3 18:03:01 Medications Name Sig Start Date Stop Date Status Note LastModified by Organization Details LastModified Time ibuprofen 800 mg tablet TAKE 1 TABLET BY MOUTH 2 HOURS BEFORE THE PROCEDURE 05/31 completed Not Available Not Available Not Available fluconazole 150 mg tablet TAKE 1 TABLET BY MOUTH ONCE 05/30 completed Not Available Not Available Not Available valacyclovi r 1 gram tablet TAKE 1 TABLET BY MOUTH EVERY DAY WITH MEALS FOR 5 DAYS 05/31 completed Not Available Not Available Not Available metronidazo le 0.75 % (37.5 mg/5 gram) vaginal gel INSERT 1 APPLICATO RFUL BY VAGINAL ROUTE FOR 5 NIGHTS AT BEDTIME 05/30 completed Not Available Not Available Not Available hydrocodone 10 mg-acetamin ophen 325 mg tablet TAKE 1 TABLET BY MOUTH 2 HOURS BEFORE THE PROCEDURE 05/31 completed Not Available Not Available Not Available ondansetron 8 mg disintegrat ing tablet TAKE 1 TABLET BY MOUTH 2 HOURS BEFORE THE PROCEDURE 05/31 completed Not Available Not Available Not Available pantoprazol e 20 mg tablet,rose yed release TAKE 1 TABLET BY MOUTH EVERY DAY IN THE MORNING 05/31 completed Not Available Not Available Not Available alprazolam 0.5 mg tablet TAKE 1 TABLET BY MOUTH 2 HOURS BEFORE THE PROCEDURE 05/31 completed Not Available Not Available Not Available estradiol 1 mg tablet TAKE 1 TABLET BY MOUTH EVERY DAY active Not Available Not Available No t Available progesteron e micronized 200 mg capsule TAKE ONE CAPSULE BY MOUTH FOR THE FIRST 7 DAYS OF EACH MONTH active Not Available Not Available No t Available fluoxetine 10 mg capsule Take 1 capsule every day by oral route. 05/31 completed Not Available Not Available Not Available Cipro HC 0.2 %-1 % ear drops,suspe nsion INSTILL 3 DROPS INTO AFFECTED EAR(S) BY OTIC ROUTE EVERY 12 HOURS 06/29 completed Not Available Not Available Not Available cefuroxime axetil 500 mg tablet Take 1 tablet every 12 hours by oral route. 05/30 completed Not Available Not Available Not Available Vitamin D2 1,250 mcg (50,000 unit) capsule Take 1 capsule every week by oral route as directed. active Not Available Not Available No t Available colchicine 0.6 mg tablet TAKE 1 TABLET BY MOUTH TWICE A DAY 05/31 completed Not Available Not Available Not Available cefdinir 300 mg capsule TAKE 1 CAPSULE BY MOUTH EVERY 12 HOURS FOR 10 DAYS 11/26 completed Not Available Not Available Not Available neomycin-po lymyxin-hyd rocort 3.5 mg-10,000 unit/mL-1 % ear drops,susp INSTILL 4 DROPS INTO AFFECTED EAR(S) BY OTIC ROUTE 3 TIMES PER DAY active Not Available Not Available No t Available Bella-D PRN 2015 active Not Available Not Available Not Avai lable Fluzone Quad 8806-6283 60 mcg (15 mcg x 4)/0.5 mL IM suspension 06/29 completed Not Available Not Available Not Available Vitals Date Recorded Body mass index (BMI) Body height Oxygen saturation Oxygen saturation in Arterial blood by Pulse oximetry Heart rate Respiratory rate Body temperature Body weight Systolic And Diastolic Provider Name and Address Organization Details Last Updated DateTime 2 31.2 kg/m2 167.64 cm 97 % 97 % 90 /min 16 /min 97.5 [degF] 26011.3 3 g 120/70 mm[Hg] Not Available [facility] 3 18:01:54 Date Recorded Body weight Body mass index (BMI) Body height Body temperature Heart rate Oxygen saturation Oxygen saturation in Arterial blood by Pulse oximetry Systolic And Diastolic Provider Name and Address Organization Details Last Updated DateTime 3 90020.2 9 g 32 kg/m2 167.64 cm 97.8 [degF] 91 /min 98 % 98 % 114/74 mm[Hg] Dinorah Serra RN [place] - S [facility] 3 11:16:09 Social History Question Answer Notes LastModified by Organizat ion Details LastModified Time Tobacco Smoking Status Never Smoker Not Available [facility] 09/15/2022 18:01:18 What Is Your Level Of Caffeine Consumption? Occasional [id number] Information not available 09/15/2022 In The 14 Days Before Symptom Onset, Have You Had Close Contact With A Laboratory-confirm ed COVID-19 While That Case Was Ill? No [id number] Information not available 09/15/2022 In The 14 Days Before Symptom Onset, Have You Had Close Contact With A Person Who Is Under Investigation For COVID-19 While That Person Was Ill? No [id number] Information not available 09/15/2022 What Type Of Diet Are You Following? REGULAR [id number] Information not available 09/15/2022 What Is The Highest Grade Or Level Of School You Have Completed Or The Highest Degree You Have Received? [id number] [id number] Information not available 09/15/2022 Have There Been Any Changes To Your Family Or Social Situation? No [id number] Information not available 09/15/2022 Are There Any Guns Present In Your Home? No [id number] Information not available 09/15/2022 Do You Use Insect Repellent Routinely? No [id number] Information not available 09/15/2022 What Is Your Relationship Status? [id number] Information not available 09/15/2022 Do You Use Your Seat Belt Or Car Seat Routinely? Yes [id number] Information not available 09/15/2022 Do You Have Smoke And Carbon Monoxide Detectors In Your Home? Yes [id number] Information not available 09/15/2022 Do You Use Sunscreen Routinely? Yes [id number] Information not available 09/15/2022 Have You Recently Traveled Abroad? No [id number] Information not available 09/15/2022 Do You Have Any Dietary Restrictions? No [id number] Information not available 09/15/2022 Sex: Unknown Functional Status Question Answer Note LastModified by Organizat ion Details LastModified Time Do you use any illicit or recreational drugs? No [id number] Information not available 09/15/2022 Do you or have you ever used any other forms of tobacco or nicotine? No [id number] Information not available 09/15/2022 Are you currently employed? 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 Family History Relationship Description Onset Age of this Age Resolved Age Notes LastModified by Organization Details LastModified Time Mother Hyperlipidem ia [id number] Not available 09/15/2022 18:01:20 Brother Type 1 diabetes mellitus [id number] Not available 09/15/2022 18:01:20 Sister Congenital heart disease [id number] Not available 09/15/2022 18:01:20 Medical History Condition Response HEADACHES/MIGRAINES Y ANXIETY DISORDER Y Gynecological History Statement/Question Response Abnormal Pap Y Date of Last Pap 11/16/2015 Obstetrics History GPAL:G 5 P 0 0 0 2 Type Value Living 2 Total 5 Immunizations Vaccine Type Date Status Note Provider Nam e and Address Organization Details Recorded Time influenza, unspecified formulation 5 completed Not Available [facility] 09/15/2022 18:03:00 Influenza, split virus, quadrivalent, preservative 7 completed Not Available [facility] 09/15/2022 18:03:00 influenza, unspecified formulation 6 completed Not Available [facility] 09/15/2022 18:03:00 Past Encounters Encounter ID Performer Location Encounter Start Date Encounter Closed Date Diagnosis/Indication Diagnosis SNOMED-CT Code Diagnosis ICD10 Code Diagnosis IMO Codes Diagnosis Note [id number] Keyshawn Loco MD [facility] [place] [address] [place] [address] 11/27/2021 00:00:00 12/15/2021 13:24:24 [id number] ELOINA Richmond [facility] [place] [address] [place] [address] 05/31/2023 10:45:13 05/31/2023 11:52:58 Adult health examination 697085112 Z00.01 well exam completed. labs due. Cholesterol screening 27 8984002 Z13.220 Diabetes m ellitus screening 175191963 Z13.1 Long-term drug therapy 272612955 Z79.899 Right lowe r quadrant pain 604888995 R10.31 noted on exam today and in ROS. 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 Health Concerns Section Related Observation LastModified by Organization Detai ls LastModified Time None Recorded Concern Status LastModified by Organization Details LastModified Time None Recorded Advance Directives Directive None Recorded Payers Insurance Date Sequence Insurance Name Policy Number Policy Perez Covered Member ID Perez Member ID Guarantor Name 05/31/[address] [facility] (O) Jessica Howard [id number] Jessica Howard 05/31/2023 1 [facility] [id number] Jessica Howard [id number] Jessica Winter Notes Date Note Type Note Provider Name and Address Organization Details Recorded Time 05/31/2023 text/html Anxiety/Depressi onR eported by PatientHPIFor severity, patient reportsdenies suicidal ideations,able to maintain relationships, anddoes not interfere with activities of daily living. For context, patient reportsno major life stressors. For associated symptoms, patient reportsdenies homicidal ideations,no significant weight gain,no significant weight loss,no visual/auditory hallucinations,no delusions, andno shortness of breath. Reflux/GERDReported by PatientHPIFor severity, patient reportsimproving. For context, patient reportsnon-smoker,n o drug/alcohol abuse,no drug alcohol withdrawal, andnot related to food/drink. For associated symptoms, patient reportsno frequent coughing,no feeling of fullness/mass in throat,no hoarseness,no food getting stuck,no belching/burping,no vomiting,not vomiting blood,no regurgitation,no shortness of breath,no chest pain,no heartburn,no difficulty swallowing,no pain when swallowing,no bad taste,no decreased appetite,no weight loss,no black/tarry stools,no fatigue, andno throat pain. ELOINA Richmond [address] [facility], [facility] [address], [place], [address], [place] - [facility] 06/03/2023 10:51:58 OBGyn Episode No OBEpisode recorded.
[2025-05-05 10:57] VITALS: BP 103/50; PULSE 75; RESP 18; TEMP 36.3; O2SAT 98
--- NOTE | 2025-05-05 11:07 | ED_ITS ---
HPI - Extremity Injury (Upper) General Chief Complaint: Extremity Injury, Upper Stated Complaint: R Shoulder patient presents to the [facility] with complaints of worsening right upper back / neck pain with radiation of pain down the right arm that began about 1 week ago. Patient reports using Tylenol, ibuprofen, heat, ice, and massage to the area without relief of symptoms. Patient reports areas just not improving and occasionally does have increased pain to the area, Also minimal tingling noted in right arm. Believes this to be started by getting a new pillow. Denies any trauma, injury, numbness, swelling, bruising, or redness. Related Data Home Medications ?Medication ?Instructions ?Recorded ?Confirmed ?Last Taken ?Type fexofenadine .ROUTE 09/05/24 Unknown His tory Allergies Allergy/AdvReac Type Severity Reaction Status Date / Time Penicillins Allergy Mild Rash Verified 09/05/24 13:44 penicillin G Allergy Unknown Unknown Verified 09/05/24 13:44 erythromycin base AdvReac Mild Nausea and Verified 09/05/24 13:44 Vomiting Review of Systems Constitutional: Constitutional: Reports as per HPI, Denies chills, Denies fatigue, Denies fever(s) and Denies weakness Eyes: Eyes: Reports no additional eye complaints ENT: Reports system reviewed and no additional complaints, except as documented Cardiovascular: Cardiovascular: Reports no additional cardiovascular complaints Respiratory: Respiratory: Reports no additional respiratory complaints Gastrointestinal: Gastrointestinal: Reports no additional gastrointestinal complaints Genitourinary: Genitourinary: Reports no additional female genitourinary complaints Musculoskeletal: Musculoskeletal: Reports as per HPI, Reports arthralgias and Reports muscle cramps Comments: neck/upper back pain- right sided Integumentary/Breasts: Skin/Breast: Reports as per HPI, Denies erythema, Denies rash and Denies skin ulcer Neurologic: Reports as per HPI, Denies numbness and Denies weakness Comments: minimal tingling right arm Psychiatric: Psychiatric: Reports no additional psychiatric complaints Endocrine: Endocrine: Reports no additional endocrine complaints Hematologic/Lymphatic: Hematologic/Lymphatic: Reports no additional hematologic/lymphatic complaints Allergic/Immunologic: Allergic/Immunologic: Reports no additional allergic/immunologic complaints PMFSH Past Medical History Medical History Abdominal pain Pelvic pain Cold sore Elevated TSH Surgical History Surgical History H/O LEEP History of Family History Family History Mother Acute myocardial infarction Cerebrovascular accident was previously on plavix. Sibling Acute myocardial infarction some weird heart problem. they said maybe she was born with it? Father Asthma Grandparent Diabetes mellitus Social History Social History Social History: Patient lives at home with her and 2 daughters. No tobacco use. No drug use. Rare alcohol use. They have 3 dogs. She is a full code. 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 Right-sided paraspinal tightness to muscle in trapezius and tenderness with palpation of this area. No edema, erythema, rash, or ecchymosis noted Resp: Effort & Inspection: normal respiratory effort Auscultation: clear to auscultation bilaterally Cardio: Rate: regular rate Rhythm: regular rhythm Skin: General skin exam: normal color Rashes: no rashes Wounds: no wounds Neuro: General: patient oriented x3 and moves all extremities Cranial nerves: Yes Nystagmus not present Speech: normal speech Gait exam (Neuro): Normal gait present Extrem: General: normal to inspection, no clubbing, cyanosis or edema and no pedal edema Psych: Mental Status: mental status grossly normal Affect: normal affect Attitude: cooperative Course Course Level of Care: Express Care Visit Vital Signs Vital signs: Vital Signs Temperature 97.3 F L 05/05/25 10:57 Pulse Rate 75 05/05/25 10:57 Respiratory Rate 18 05/05/25 10:57 Blood Pressure 103/50 L 05/05/25 10:57 Pulse Oximetry 98 05/05/25 10:57 Oxygen Delivery Room Air 05/05/25 10:57 Temperature 97.3 F L 05/05/25 10:57 Pulse Rate 75 05/05/25 10:57 Respiratory Rate 18 05/05/25 10:57 Blood Pressure 103/50 L 05/05/25 10:57 Pulse Oximetry 98 05/05/25 10:57 Oxygen Delivery Room Air 05/05/25 10:57 MDM - Extremity Injury (Upper) MDM Narrative Medical decision making narrative: Likely muscular in nature. No vertebral tenderness. Spoke with patient about resting for 24-48 hours while using inflammatories work then using the heat stretch/ massage and ice rotation. May need imaging and further evaluation if no improvement in symptoms The patient was evaluated by myself in the express care. History is obtained from patient who is an independent historian and physical exam was performed. Available medical records were reviewed at this time. Exam findings show no acute concerns or changes; patient is non-toxic appearing and is in no distress. Patient is appropriate for outpatient treatment and follow-up. I have evaluated and discussed social determinants of health with the patient that could potentially impact subsequent diagnosis and treatment plans. Differential diagnosis and treatment plan were discussed with the patient. Patient agrees with discussion and after shared medical decision making agrees with plan of care. All questions were answered to the patient's satisfaction. Differential Diagnosis Differential diagnosis: Likely dislocation of shoulder, fracture of clavicle and other ( muscle strain, cervical radiculopathy) Medical Records Attestation: I reviewed the patient's medical records. Discharge Plan Discharge Clinical Impression: Strain of muscle, fascia and tendon at neck level, initial encounter Patient Disposition: Home Condition: Stable Instructions: Antibiotic Form, Cervical Strain (ED), Muscle Strain (ED) Additional Instructions: your x-rays are negative for fracture abnormality Express Care today. This is likely muscular in nature recommended resting for 2 days then begin applying heat for 20 minutes then gentle range of motion or massaged then ice for 20 minute several times per day. may use the sling as needed to get extra support take ibuprofen or naproxen as directed consistently this will help with inflammation. May use the muscle relaxers as needed this can make you drowsy do not drive, drink alcohol or operate heavy machinery while taking this medication. Follow-up with primary care physician within the next week if symptoms not improved if you notice any significant numbness, tingling, weakness, or neck pain follow-up with emergency room for immediate evaluation. Patient Language: Italian Prescriptions: New methylprednisolone [Medrol (Everardo)] 4 mg tablets,dose pack See Rx Instructions .ROUTE .COMPLEX Qty: 21 0RF Rx Instructions: for 6 days tizanidine 4 mg capsule 4 mg PO TID PRN (Reason: muscle spasticity) Qty: 30 0RF No Action fexofenadine [Bella Allergy] .ROUTE Follow-up/Referrals: Nidia Lobo APRN [Primary Care Provider, Family Practice] Time of Disposition: 11:10
== END 2025-05-05 11:15 | disposition home or self-care (01) ==
PROVIDERS: Emergency Provider Nurse Practitioner Family; PCP Nurse Practitioner Family
DX: S16.1XXA Strain of muscle, fascia and tendon at neck level, initial encounter (principal)
CPT/HCPCS: 99213; G0463